=== PATIENT | female | born 1995 | race Caucasian/White ===

== ENCOUNTER → 2016-12-18 | Outpatient (CLI) | payer BC ==
[~2016-12-18] MED LIST: ETONMIS VAGRING; OXYC1TAB3 PO; PEDICHW53 PO
[2016-12-21 03:20] LABS: CHLAMYDIA TRACH RNA*** NOT DETECTED (NOT DETECTED); GC (NEIS GONORRHOEAE)RNA** NOT DETECTED (NOT DETECTED)
== END | disposition home or self-care (01) ==
LOC: C.LABSPEC 16:52
PROVIDERS: ATTEND Obstetrics & Gynecology
DX: Z11.3 Encounter for screening for infections with a predominantly sexual mode of transmission (principal)

== ENCOUNTER → 2016-12-18 | Outpatient (CLI) | payer BC | END | disposition home or self-care (01) | LOC: C.PAPS 10:17 | PROVIDERS: ATTEND Physician Assistant | DX: Z01.419 Encounter for gynecological examination (general) (routine) without abnormal findings (principal) ==

== ENCOUNTER 2017-07-04 15:27 | Emergency (ER) | payer BC ==
[~2017-07-04] VITALS: Ht 149.9 cm; Wt 66.5 kg
[2017-07-04 15:52] VITALS: TEMP 37.1; Ht 149.9 cm; Wt 66.5 kg
[2017-07-04] MEDS ORDERED: SODIUM CHLORIDE 0.9% 1000ML 1,000 ML IV STA (16:26)
[2017-07-04] MEDS ORDERED: SODIUM CHLORIDE 0.9% 1000ML 1,000 ML IV ONE (16:26)
[2017-07-04] MEDS ORDERED: KETOROLAC TROMETHAMINE 30 MG/ML VIAL IV STA (16:26)
--- NOTE | 2017-07-04 16:31 | EMERGENCY ROOM VISIT NOTE ---
History Report prepared by Sue: none Under the Supervision of: Dr. Madhu Li M.D. First contact with patient: 16:22 Chief Complaint: FLANK PAIN Stated Complaint: NAUSEA, LOWER BACK PAIN History of Present Illness The patient is a 21 year old female who presents to the Emergency Room with complaints of sudden onset of right flank pain. No history of similar. Denies dysuria or hematuria. She is currently having her normal menstrual period. There is no trauma. She's had no numbness weakness of her legs. No bowel or bladder problems. No chest pain or shortness of breath. She appears to be uncomfortable. This started this afternoon suddenly right after class. Source of History: patient Review of Systems As above. All other systems reviewed were negative unless otherwise stated in history. At least 10 were reviewed Past Medical & Surgical Old medical records were reviewed. Nurse's notes were reviewed and I agree with. Denies history of kidney stones Denies . She is on a NuvaRing Social History Smoking Status: Never Smoker Drug Use: none Marital Status: single Occupation Status: [employer] student Current/Historical Medications Scheduled Etonogestrel/Ethinyl Estradiol (Nuvaring), 1 EA VAGRING MONTHLY Pediatric Multiple Vitamin W/ (Flintstones Gummies), 2 TABS PO DAILY Scheduled PRN Oxycodone Immediate Rel Tab (Roxicodone Ir), 1-2 TAB PO Q4H PRN for Severe Pain Allergies Coded Allergies: No Known Allergies (Unverified , 07/04/17) Physical Exam Vital Signs Date Time Temp Pulse Resp B/P (MAP) Pulse Ox O2 Delivery O2 Flow Rate FiO2 07/04/17 17:19 72 110/80 100 Room Air 07/04/17 15:52 37.1 74 20 98 Room Air Physical Exam General: Well developed well nourished uncomfortable appearing young female complaining of right flank pain. In no acute distress, breathing comfortably on room air. Normal speech HEENT: Normal cephalic atraumatic. Pupils are equal round and reactive to light. Extraocular movements are intact. Oropharynx is pink with moist mucous membranes. No swelling of the mouth lips or tongue. Neck: Supple with a midline trachea. No meningeal signs or stiffness, no JVD or bruits. No Stridor. Chest: Clear to auscultation bilaterally. No wheezes or rhonchi. No increased work of breathing. Heart: Regular rate and rhythm without murmurs or gallops. Abdomen: Soft nontender, nondistended without rebound guarding or rigidity. Extremities: No cyanosis clubbing or edema. No calf tenderness or assymetry Spine/Back. She is mildly reproducible tender to palpation in the right flank.s Skin: Good turgor without rashes. Neurologic exam: Cranial nerves two through 12 are intact. Motor and sensation are intact and symmetrical throughout. Medical Decision & Procedures Laboratory Results 07/04/17 16:30 Red Blood Count 4.38, Mean Corpuscular Volume 82.9, Mean Corpuscular Hemoglobin 26.7, Mean Corpuscular Hemoglobin Concent 32.2, Mean Platelet Volume 9.9, Neutrophils (%) (Auto) 70.1, Lymphocytes (%) (Auto) 23.0, Monocytes (%) (Auto) 5.7, Eosinophils (%) (Auto) 0.7, Basophils (%) (Auto) 0.1, Neutrophils # (Auto) 10.16, Lymphocytes # (Auto) 3.34, Monocytes # (Auto) 0.83, Eosinophils # (Auto) 0.10, Basophils # (Auto) 0.02 07/04/17 16:30 Test 07/04/17 16:30 07/04/17 18:20 White Blood Count 14.51 K/uL (4.8-10.8) Red Blood Count 4.38 M/uL (4.2-5.4) Hemoglobin 11.7 g/dL (12.0-16.0) Hematocrit 36.3 % (37-47) Mean Corpuscular Volume 82.9 fL (80-100) Mean Corpuscular Hemoglobin 26.7 pg (25-34) Mean Corpuscular Hemoglobin Concent 32.2 g/dl (32-36) Platelet Count 387 K/uL (130-400) Mean Platelet Volume 9.9 fL (7.4-10.4) Neutrophils (%) (Auto) 70.1 % Lymphocytes (%) (Auto) 23.0 % Monocytes (%) (Auto) 5.7 % Eosinophils (%) (Auto) 0.7 % Basophils (%) (Auto) 0.1 % Neutrophils # (Auto) 10.16 K/uL (1.4-6.5) Lymphocytes # (Auto) 3.34 K/uL (1.2-3.4) Monocytes # (Auto) 0.83 K/uL (0.11-0.59) Eosinophils # (Auto) 0.10 K/uL (0-0.5) Basophils # (Auto) 0.02 K/uL (0-0.2) RDW Standard Deviation 41.5 fL (36.4-46.3) RDW Coefficient of Variation 13.6 % (11.5-14.5) Immature Granulocyte % (Auto) 0.4 % Immature Granulocyte # (Auto) 0.06 K/uL (0.00-0.02) Platelet Estimate NORMAL Anion Gap 11.0 mmol/L (3-11) Est Creatinine Clear Calc Drug Dose 75.3 ml/min Estimated GFR () 95.6 Estimated GFR (Non- 82.5 BUN/Creatinine Ratio 8.5 (10-20) Calcium Level 9.0 mg/dl (8.5-10.1) Total Bilirubin 0.2 mg/dl (0.2-1) Direct Bilirubin < 0.1 mg/dl (0-0.2) Aspartate Amino Transf (AST/SGOT) 17 U/L (15-37) Alanine Aminotransferase (ALT/SGPT) 18 U/L (12-78) Alkaline Phosphatase 40 U/L (45-117) Total Protein 8.0 gm/dl (6.4-8.2) Albumin 3.2 gm/dl (3.4-5.0) Lipase 76 U/L (73-393) Human Chorionic Gonadotropin, Qual NEG (NEG) Urine Color YELLOW Urine Appearance CLEAR (CLEAR) Urine pH 6.0 (4.5-7.5) Urine Specific [place] 1.021 (1.000-1.030) Urine Protein TRACE (NEG) Urine Glucose (UA) NEG (NEG) Urine Ketones 1+ (NEG) Urine Occult Blood 3+ (NEG) Urine Nitrite NEG (NEG) Urine Bilirubin NEG (NEG) Urine Urobilinogen NEG (NEG) Urine Leukocyte Esterase NEG (NEG) Medications Administered Medications (Trade) Dose Ordered Sig/Erik Route Start Time Stop Time Status Last Admin Dose Admin Sodium Chloride 1,000 ml @ 999 mls/hr Q1H1M STAT IV 07/04/17 16:26 07/04/17 17:26 DC 07/04/17 16:38 999 MLS/HR Sodium Chloride 1,000 ml @ 200 mls/hr Q5H ONCE IV 07/04/17 16:26 07/04/17 21:25 07/04/17 16:26 200 MLS/HR Ketorolac Tromethamine (Toradol Inj) 30 mg NOW STAT IV 07/04/17 16:26 07/04/17 16:28 DC 07/04/17 16:36 30 MG Morphine Sulfate (MoRPHine SULFATE INJ) 4 mg NOW STAT IV 07/04/17 17:43 07/04/17 17:48 DC 07/04/17 17:52 4 MG Ondansetron HCl (Zofran Inj) 4 mg NOW STAT IV 07/04/17 17:43 07/04/17 17:48 DC 07/04/17 17:52 4 MG Medical Decision Differential diagnosis includes: Kidney stone, kidney infection, musculoskeletal , , colitis, electrolyte or metabolic abnormality This patient comes in as described above. She was placed in room B6. She had sudden onset of flank pain. She appears very uncomfortable. IV access established was hydrated 1 L IV normal saline bolus and 200 mL an hour of IV normal saline. She was given Toradol 30 mg IV. Blood work was obtained as well as urinalysis and culture. She did receive some relief with this but started having more severe pain was given morphine 4 mg IV and Zofran 4 mg IV this seemed to help greatly. Upon reassessmen, t her pain was started to come back so she was given additional 4 mg of morphine. CAT scan shows obstructive kidney stone 4 mm distally on the right near the UVJ this will likely pass on its own. She was hydrated with IV normal saline here she has nothing to suggest infection. She is not . She has normal kidney function. She will be able to be discharged home s. He should strain her urine. Use ibuprofen for pain. For breakthrough pain, she can use OxyIR 5 mg 1-2 pills every 4-6 hours as needed. She was warned that it can make her drowsy and do not take before drinking, driving, working take with any other narcotic or pain medications. She should follow up with the [facility] for recheck next 1-2 days. [place] Drug Monitoring Program Search Results: patient reviewed within database, no issues identified Medication Reconcilliation Current Medication List: was personally reviewed by me Blood Pressure Screening Patient's blood pressure: Normal blood pressure Impression Primary Impression: Renal colic Additional Impressions: Right flank pain Kidney stone on right side Scribe Attestation none Departure Information Prescriptions Oxycodone Immediate Rel Tab (ROXICODONE IR) 5 Mg Tab 1-2 TAB PO Q4H Y for Severe Pain, #15 TAB Prov: Madhu Li M.D. 07/04/17 Referrals No Doctor, Assigned (PCP) Patient Instructions My [facility] Problem Qualifiers
[2017-07-04] MEDS ORDERED: PEDICHW53 PO (16:55)
[2017-07-04] MEDS ORDERED: ETONMIS VAGRING (16:55)
[2017-07-04 17:10] LABS: ALT/SGPT 18 U/L (12-78); BLOOD UREA NITROGEN 8 mg/dl (7-18); BUN/CREATININE RATIO 8.5 (10-20); CARBON DIOXIDE 22 mmol/L (21-32); CHLORIDE 108 mmol/L (98-107); CREATININE 0.98 mg/dl (0.60-1.20); GLUCOSE 112 mg/dl (70-99); POTASSIUM 3.3 mmol/L (3.5-5.1); SODIUM 141 mmol/L (136-145)
[2017-07-04 17:13] LABS: ALKALINE PHOSPHATASE 40 U/L (45-117); AST/SGOT 17 U/L (15-37)
[2017-07-04 17:15] LABS: PREG INTERNAL NEGATIVE QC NEG CLEAR BACKGROUND; PREG INTERNAL POSITIVE QC POS CONTROL LINE
[2017-07-04 17:18] LABS: HEMATOCRIT 36.3 % (37-47); MEAN CELL VOLUME 82.9 fL (80-100); MEAN CORPUSCULAR HEMOGLOBIN 26.7 pg (25-34); MEAN CORPUSCULAR HGB CONC 32.2 g/dl (32-36); MEAN PLATELET VOLUME 9.9 fL (7.4-10.4); PLATELET COUNT 387 K/uL (130-400); RED BLOOD COUNT 4.38 M/uL (4.2-5.4); WHITE BLOOD COUNT 14.51 K/uL (4.8-10.8)
[2017-07-04 17:19] LABS: BASO % 0.1 %; BASO ABS # 0.02 K/uL (0-0.2); COMPLETE YES; EOS % 0.7 %; IG% 0.4 %; LYMPH ABS # 3.34 K/uL (1.2-3.4); MONO % 5.7 %; NEUT % 70.1 %; PLT ESTIMATE NORMAL
--- NOTE | 2017-07-04 17:32 | DIAGNOSTIC IMAGING REPORT ---
CT SCAN OF THE ABDOMEN AND PELVIS WITHOUT IV CONTRAST CLINICAL HISTORY: Flank pain. COMPARISON STUDY: No priors. TECHNIQUE: CT scan of the abdomen and pelvis is performed from the lung bases to the proximal femora. Images are reviewed in the axial, sagittal, and coronal planes. IV contrast was not administered for this examination as per the front clinician. A dose lowering technique was utilized adhering to the principles of ALARA. CT DOSE: 731.48 mGy.cm FINDINGS: Lung bases: The heart is normal in size and without pericardial effusion. The lung bases are clear. Nipple piercings are noted. Liver: The unenhanced liver is normal in size, contour, and attenuation. There is no intrahepatic biliary ductal dilatation. Gallbladder: Unremarkable. Spleen: Normal in size and attenuation. Pancreas: Unremarkable. Adrenal glands: Unremarkable. Kidneys: The unenhanced kidneys are normal in size. There is a 4 mm obstructing calculus at the right vesicoureteral junction seen on axial image #356. This causes mild right hydroureteronephrosis. An additional punctate nonobstructing calculus is seen in the upper pole the left kidney. There is no left-sided hydronephrosis. There is no evidence of contour deforming renal mass lesion. Abdominal vasculature: The abdominal aorta is normal in course and caliber. Bowel: The small bowel and colon are normal in course and caliber. The appendix is not identified and reported surgically absent. Peritoneum: There is no intraperitoneal free air or abdominal ascites. There is a small fat-containing umbilical hernia. Lymphadenopathy: None. Pelvic viscera: The bladder, uterus, and adnexa are normal as visualized. Trace free fluid is seen in the cul-de-sac.. A tampon is in place. Skeletal structures: No lytic or blastic lesions are seen. IMPRESSION: 1. There is a 4 mm obstructing calculus at the right vesicoureteral junction. This causes mild right hydroureteronephrosis. 2. A punctate nonobstructing calculus is seen in the left kidney. 3. There is trace and likely physiologic free fluid in the cul-de-sac. Electronically signed by: Bar Lozano M.D. 07/04/2017 5:31 PM Dictated Date/Time: 07/04/2017 5:24 PM
[2017-07-04] MEDS ORDERED: MoRPHine SULFATE 4 MG/ML 1 ML CARP\\VIAL IV STA ×2 (17:43→18:27)
[2017-07-04] MEDS ORDERED: ONDANSETRON INJ 2 MG/ML 2 ML VIAL IV STA (17:43)
[2017-07-04] MEDS ORDERED: OXYC1TAB3 PO (18:34)
[2017-07-04 18:42] LABS: URINE APPEARANCE CLEAR (CLEAR); URINE BILIRUBIN NEG (NEG); URINE COLOR YELLOW; URINE EPITHELIAL CELL AUTO >30 /lpf (0-5); URINE NITRITE NEG (NEG); URINE SPECIFIC GRAVITY 1.021 (1.000-1.030); UROBILINOGEN NEG (NEG)
[2017-07-04] MEDS ORDERED: OXYCODONE IR HOME PACK PO ONE (18:45)
[2017-07-04 18:48] LABS: MANUAL MICROSCOPIC REQUIRED? NO; REVIEW REQ? YES
[2017-07-04 19:44] VITALS: BP 118/65; PULSE 93; O2SAT 97
[2017-07-04] MEDS ORDERED: ONDANSETRON HOME PACK 4MG OD TAB PO ONE (20:15)
[2017-07-04] MEDS ORDERED: ONDANSETRON HOME PACK 4MG OD TAB ONE (20:16)
== END 2017-07-04 19:46 | disposition home or self-care (01) ==
LOC: C.EDB 15:28
DX: N20.0 Calculus of kidney (principal); N23 Unspecified renal colic

== ENCOUNTER → 2017-07-10 | Outpatient (CLI) | payer BC | END | disposition home or self-care (01) | LOC: C.LABSPEC 17:17 | PROVIDERS: ATTEND Nurse Practitioner Adult Health | DX: N20.1 Calculus of ureter (principal) ==

== ENCOUNTER → 2017-07-16 | Outpatient (CLI) | payer BC | END | disposition home or self-care (01) | LOC: C.LABSPEC 17:39 | PROVIDERS: ATTEND Nurse Practitioner Adult Health | DX: N20.1 Calculus of ureter (principal) ==

== ENCOUNTER → 2017-07-16 | Outpatient (CLI) | payer BC ==
--- NOTE | 2017-07-16 13:31 | DIAGNOSTIC IMAGING REPORT ---
KUB CLINICAL HISTORY: Ureteral stone. COMPARISON STUDY: CT of the abdomen and pelvis July 04, 2017. FINDINGS: The bowel gas pattern is normal. The right ureteral calculus shown on CT of July 04, 2017 is not visualized. Pelvic calcifications likely reflect phleboliths. No urinary calculi are identified. IMPRESSION: Nonvisualization of the right ureteral calculus shown on prior CT suggesting interval passage. Electronically signed by: Wan Doyle M.D. 07/16/2017 1:30 PM Dictated Date/Time: 07/16/2017 1:28 PM
== END | disposition home or self-care (01) ==
LOC: C.RAD 12:58
PROVIDERS: ATTEND Nurse Practitioner Adult Health
DX: N20.1 Calculus of ureter (principal)

== ENCOUNTER → 2017-07-19 | Outpatient (CLI) | payer BC ==
--- NOTE | 2017-07-19 13:57 | DIAGNOSTIC IMAGING REPORT ---
SOFT TISS HEAD/NECK-THYROID CLINICAL HISTORY: 21 years-old Female with LT NECK MASS. Left-sided neck mass. COMPARISON: None available TECHNIQUE: Multiple real time sonographic images of the neck were obtained accessing smith scale appearance and color doppler flow. FINDINGS: Within the left aspect of the neck there is an ovoid circumscribed wider than tall hypoechoic structure measuring 2.9 x 1.1 x 2.3 cm with internal vascularity and mildly increased echogenicity centrally suggesting lymph node with fatty hilum. The patient is reportedly tender to palpation within this region. IMPRESSION: Mildly enlarged lymph node of the left neck measures up to 1.1 cm in short axis. This is likely reactive, however follow-up recommended to exclude progressive abnormality. The above report was generated using voice recognition software. It may contain grammatical, syntax or spelling errors. Electronically signed by: Phillip Lane M.D. 07/19/2017 1:56 PM Dictated Date/Time: 07/19/2017 1:44 PM
== END | disposition home or self-care (01) ==
LOC: C.ULTR 13:29
PROVIDERS: ATTEND Surgery
DX: R59.0 Localized enlarged lymph nodes (principal)

== ENCOUNTER → 2017-09-05 | Outpatient (CLI) | payer BC ==
--- NOTE | 2017-09-05 11:30 | DIAGNOSTIC IMAGING REPORT ---
SINUSES MIN 3 VIEWS ROUTINE CLINICAL HISTORY: Chronic cough. Allergic rhinitis. COMPARISON STUDY: No previous studies for comparison. FINDINGS: The paranasal sinuses are clear by radiography. No air-fluid levels or bony destruction are identified by radiography. Mastoid air cells are well aerated. IMPRESSION: No paranasal sinus opacification identified by radiography. Electronically signed by: Wan Doyle M.D. 09/05/2017 11:29 AM Dictated Date/Time: 09/05/2017 11:28 AM
== END | disposition home or self-care (01) ==
LOC: C.RAD1850 11:08
PROVIDERS: ATTEND Internal Medicine Pulmonary Disease
DX: J30.9 Allergic rhinitis, unspecified (principal); R05 Cough

== ENCOUNTER → 2017-09-14 | Outpatient (CLI) | payer BC ==
[~2017-09-14] MED LIST changes: +OPTIRAY 320 IV PRN
[2017-09-14 14:14] LABS: BASO % 0.1 %; BASO ABS # 0.01 K/uL (0-0.2); COMPLETE YES; EOS % 1.7 %; HEMATOCRIT 37.9 % (37-47); IG% 0.1 %; LYMPH ABS # 1.36 K/uL (1.2-3.4); MEAN CELL VOLUME 82.4 fL (80-100); MEAN CORPUSCULAR HEMOGLOBIN 26.7 pg (25-34); MEAN CORPUSCULAR HGB CONC 32.5 g/dl (32-36); MONO % 8.2 %; NEUT % 70.9 %; PLATELET COUNT 300 K/uL (130-400); WHITE BLOOD COUNT 7.16 K/uL (4.8-10.8)
[2017-09-14 14:24] LABS: PARTIAL THROMBOPLASTIN RATIO 1.1
[2017-09-14 14:38] LABS: BLOOD UREA NITROGEN 9 mg/dl (7-18); BUN/CREATININE RATIO 9.9 (10-20); CALCIUM 8.7 mg/dl (8.5-10.1); CARBON DIOXIDE 25 mmol/L (21-32); CHLORIDE 107 mmol/L (98-107); CREATININE 0.94 mg/dl (0.60-1.20); GLUCOSE 83 mg/dl (70-99); POTASSIUM 3.6 mmol/L (3.5-5.1); SODIUM 139 mmol/L (136-145)
[2017-09-14 14:42] LABS: ALB/GLOB RATIO 0.8 (0.9-2); ALKALINE PHOSPHATASE 42 U/L (45-117); ALT/SGPT 22 U/L (12-78); AST/SGOT 16 U/L (15-37)
[2017-09-14 15:07] LABS: IMMUNOGLOBULN M 59.4 mg/dL (40-230)
--- NOTE | 2017-09-14 15:08 | DIAGNOSTIC IMAGING REPORT ---
CT OF THE CHEST WITH IV CONTRAST CLINICAL HISTORY: Shortness of breath, chronic cough and enlarged lymph nodes in neck. COMPARISON STUDY: No previous studies for comparison. TECHNIQUE: Following IV administration of 93 mL of Optiray-320, helical axial images of the chest were obtained. Sagittal and coronal reconstructions were viewed as well as maximal intensity projections on an independent 3-D workstation. A dose lowering technique was utilized adhering to the principles of ALARA. CT DOSE: 168.20 mGycm FINDINGS: The size of the heart is normal. There is no pericardial effusion. No enlarged axillary, mediastinal or hilar lymph nodes are present. The central airways are patent. There is no consolidation to suggest pneumonia. There are no pulmonary nodules. Lung volumes are normal. No pneumothorax or pleural effusion is present. There is no honeycombing or bronchiectasis. Bony thorax and upper abdomen are unremarkable. IMPRESSION: Unremarkable chest CT. No consolidation to suggest pneumonia. No thoracic lymphadenopathy. Electronically signed by: Wan Doyel M.D. 09/14/2017 3:07 PM Dictated Date/Time: 09/14/2017 3:01 PM
== END | disposition home or self-care (01) ==
LOC: C.CTS 13:19
PROVIDERS: ATTEND Internal Medicine Pulmonary Disease
DX: R59.0 Localized enlarged lymph nodes (principal); R05 Cough; J30.9 Allergic rhinitis, unspecified

== ENCOUNTER 2017-10-05 06:26 | Day surgery (SDC) | payer BC ==
[2017-10-05] VITALS (7 sets, daily range): BP systolic 112–143; BP diastolic 65–88; PULSE 94–115; TEMP 37–37.8; O2SAT 94–100; Ht 149.9 cm; Wt 59.0 kg
[~2017-10-05] VITALS: Ht 149.9 cm; Wt 59.0 kg
[~2017-10-05 06:26] MED LIST changes: -OPTIRAY 320 IV PRN
--- NOTE | 2017-10-05 07:45 | History & Physical Bridge Note ---
H&P Re-Evaluation Bridge Note: I have examined the patient, reviewed the History & Physical and in the interval since the performance of the History & Physical I have noted the following changes of clinical significance: No changes noted
--- NOTE | 2017-10-05 07:46 | Pre Sedation Assessment ---
Pre Sedation Assessment General Date of Sedation: Oct 05, 2017. Pre-Sedation Airway Assessment Smoking Status: Never Smoker Mallampati Classification: Class II ASA Classification: Class I Procedure Planning Contraindications for Sedation: None Current Medications Reviewed: Yes Notes The planned sedation has been discussed with the patient. Informed Consent was obtained. I have identified the patient, determined the appropriateness of sedation and have assessed the patient immediately prior to the procedure. All medicine(s) and interventions are by my order.
[2017-10-05] MEDS ORDERED: LAMO100T16 PO (08:00)
[2017-10-05] MEDS ORDERED: BUPRTAB51 PO (08:00)
[2017-10-05] MEDS ORDERED: TRAZ100T29 PO (08:00)
[2017-10-05] MEDS ORDERED: NURSING VERBAL MED ORDER ONE (09:15)
[2017-10-05] MEDS ORDERED: DEXTROSE 5% 1000ML 1,000 ML IV SCH (09:30)
[2017-10-05] MEDS ORDERED: FENTANYL CITRATE INJ 50 MCG/1 ML 2 ML VIAL IV ONE (10:21)
[2017-10-05] MEDS ORDERED: LEVALBUTEROL 1.25MG/0.5ML NEB INH ONE (10:21)
[2017-10-05] MEDS ORDERED: LIDOCAINE HCL 2% LOCAL 50ML VIAL INSTIL ONE (10:21)
[2017-10-05] MEDS ORDERED: MIDAZOLAM HCL 5 MG/ML 1 ML VIAL IV ONE (10:21)
[2017-10-05] MEDS ORDERED: LIDOCAINE 4% INH SOLN 4 ML BTL TOP ONE (10:21)
[2017-10-05] MEDS ORDERED: LIDOCAINE VISCOUS 2% 100ML TOP ONE (10:21)
--- NOTE | 2017-10-05 10:26 | Discharge Instructions ---
Discharge Instructions Date of Service Oct 05, 2017. Admission Reason for Admission: COUGH Discharge Discharge Diagnosis / Problem: Chronic tracheobronchitis Discharge Goals Goal(s): Diagnostic testing Activity Recommendations Activity Limitations: resume your previous activity Lifting Limitations: none Exercise/Sports Limitations: none May Resume Sexual Activity: when tolerated Shower/Bathe: no limitations Driving or Machine Use: resume 1 day after discharge none . Instructions / Follow-Up Instructions / Follow-Up ACTIVITY RECOMMENDATIONS: * Rest today, resume normal activity tomorrow. * Do not drive today. SPECIAL CARE INSTRUCTIONS: * Call your physician if you experience any chest or shoulder pain, fever, coughing, spitting up blood (more than 2 teaspoons) or excessive shortness of breath. * Remove dressing from IV site (where needle was placed into the vein) after 2 hours. Apply a warm, moist compress to site if irritation occurs. Call physician if site becomes red or painful to touch. FOLLOW UP VISIT: * Keep any scheduled doctor appointments. Current Hospital Diet Patient's current hospital diet: regular Discharge Diet Recommended Diet: Regular Diet Fluid Restriction: None Procedures Procedures Performed: BRONCHOSCOPY Pending Studies Studies pending at discharge: no Medical Emergencies . Who to Call and When: Medical Emergencies: If at any time you feel your situation is an emergency, please call 911 immediately. . Non-Emergent Contact Non-Emergency issues call your: Director Of Informatics Call Non-Emergent contact if: temperature is above 101 . . "Provider Documentation" section prepared by Isaias Chaudhari. . VTE Core Measure Inpt VTE Proph given/why not?: Treatment not indicated
--- NOTE | 2017-10-05 12:04 | OPERATIVE REPORT ---
DATE OF OPERATION: 10/05/2017 PROCEDURE: Fiberoptic bronchoscopy with bronchoalveolar lavage with or without biopsy. INDICATIONS: Chronic cough refractory to aggressive outpatient therapy. ANESTHESIA PREOPERATIVELY: None. ANESTHESIA DURING PROCEDURE: A 100 mcg IV fentanyl, 7 mg IV Versed, 20 mL 2% Xylocaine spray above and below the cords, 4% viscous Xylocaine intranasally. DESCRIPTION OF PROCEDURE: Thank Fiberoptic bronchoscope was inserted into the left naris with minimal difficulty and passed to the level of the true vocal cords. Cords appeared to approximate normally with phonation without evidence of lesions or paralysis. The scope was then introduced in the trachea and right and left tracheobronchial tree. Immediately apparent was that there were several areas of abnormality seen initially. Initially at fourth to fifth intratracheal cartilaginous rings, posteriorly there was a whitish plaque or membrane adherent to the posterior wall. This similar findings was seen in several areas less prominently displayed throughout the trachea. The scope was then passed to the level of the arpita which was sharp in the right and left tracheobronchial tree. The right main stem bronchus was found to be free of endobronchial lesions. Right upper lobe, the apical posterior, anterior and axillary segments were visualized with no endobronchial lesions seen. Bronchus intermedius, right middle lobe, medial lateral segments and all basilar segments right lower lobe were then found to be free of endobronchial lesions. Left tracheobronchial tree was explored and no endobronchial lesion was seen. Left upper lobe, lingular, the apical posterior and anterior segments, lingular subdivision and left lower lobe were all found to be free of endobronchial lesions with some mild mucous pitting seen throughout the left tracheobronchial tree. The right lower lobe and left lower lobe were copiously lavaged with normosol as well as the boss of the trachea and the aspirate sent for appropriate studies. Brushings were taken from the most prominently displayed area of whitish plaque involving the posterior tracheal wall x3 with minimal bleeding encountered. One biopsy was attempted with only a small piece of tissue obtained. Technically, it was difficult to biopsy this area given its location. The procedure was terminated. The patient was given a nebulizer treatment with Xopenex 1.25 mg and transferred to the medical treatment unit hemodynamically stable with no signs of respiratory compromise. Will await microbiological, cytological and histopathologic diagnoses in addition to routine cultures for C&S, AFB and fungal from the tracheobronchial washings, CMV and herpes simplex cultures were sent for as well as PCR for both Bordetella pertussis, herpes simplex and CMV from the bronchial washings were ordered. I attest to the content of the Intraoperative Record and any orders documented therein. Any exception s are noted below.
== END 2017-10-05 12:25 | disposition home or self-care (01) ==
LOC: C.ACU 06:26
PROVIDERS: ATTEND Internal Medicine Pulmonary Disease
DX: R05 Cough (principal); J30.9 Allergic rhinitis, unspecified; F41.8 Other specified anxiety disorders; R59.0 Localized enlarged lymph nodes; N20.1 Calculus of ureter; Z90.89 Acquired absence of other organs; Z82.49 Family history of ischemic heart disease and other diseases of the circulatory system; Z84.1 Family history of disorders of kidney and ureter; Z80.3 Family history of malignant neoplasm of breast; Z84.2 Family history of other diseases of the genitourinary system; Z81.8 Family history of other mental and behavioral disorders

== ENCOUNTER 2018-01-25 14:13 | Inpatient (IN) | payer BC ==
[~2018-01-25] VITALS: Ht 149.9 cm; Wt 61.7 kg
[~2018-01-25 14:13] MED LIST changes: +BUPRTAB51 PO; +LAMO100T16 PO; -OXYC1TAB3 PO; -PEDICHW53 PO; +TRAZ100T29 PO
[2018-01-25] MEDS ORDERED: SODIUM CHLORIDE 0.9% 1000ML 1,000 ML IV STA (14:28)
--- NOTE | 2018-01-25 14:56 | DIAGNOSTIC IMAGING REPORT ---
CHEST ONE VIEW PORTABLE HISTORY: Overdose COMPARISON: Chest CT 09/14/2017. FINDINGS: The lungs are clear. The heart is normal in size. No pleural effusions. No pneumothorax. Old, healed left seventh rib fracture. IMPRESSION: No acute process. Electronically signed by: Giorgi Lopez M.D. 01/25/2018 2:54 PM Dictated Date/Time: 01/25/2018 2:53 PM
[2018-01-25 15:01] LABS: BASO % 0.1 %; BASO ABS # 0.01 K/uL (0-0.2); EOS % 0.2 %; EOS ABS # 0.02 K/uL (0-0.5); HEMATOCRIT 37.7 % (37-47); HEMOGLOBIN 12.4 g/dL (12.0-16.0); IG# 0.03 K/uL (0.00-0.02); LYMPH % 11.1 %; LYMPH ABS # 1.18 K/uL (1.2-3.4); MEAN CELL VOLUME 82.9 fL (80-100); MEAN CORPUSCULAR HEMOGLOBIN 27.3 pg (25-34); MEAN CORPUSCULAR HGB CONC 32.9 g/dl (32-36); MEAN PLATELET VOLUME 9.4 fL (7.4-10.4); MONO % 3.7 %; MONO ABS # 0.39 K/uL (0.11-0.59); NEUT % 84.6 %; NEUT ABS # 9.03 K/uL (1.4-6.5); PLATELET COUNT 300 K/uL (130-400); RED CELL DISTRIBUTION WIDTH CV 13.2 % (11.5-14.5); RED CELL DISTRIBUTION WIDTH SD 39.6 fL (36.4-46.3); WHITE BLOOD COUNT 10.66 K/uL (4.8-10.8)
[2018-01-25 15:15] LABS: PTT PATIENT 23.2 SECONDS (21.0-31.0)
[2018-01-25 15:23] LABS: ALBUMIN 3.6 gm/dl (3.4-5.0); ALT/SGPT 14 U/L (12-78); AST/SGOT 13 U/L (15-37); BLOOD UREA NITROGEN 11 mg/dl (7-18); CALCIUM 8.5 mg/dl (8.5-10.1); CARBON DIOXIDE 24 mmol/L (21-32); CREATININE 0.99 mg/dl (0.60-1.20); GLUCOSE 110 mg/dl (70-99); LIPASE 63 U/L (73-393); POTASSIUM 3.7 mmol/L (3.5-5.1); SODIUM 138 mmol/L (136-145)
[2018-01-25 15:28] LABS: ALKALINE PHOSPHATASE 33 U/L (45-117); CKMB < 0.5 ng/ml (0.5-3.6); TOTAL PROTEIN 7.3 gm/dl (6.4-8.2)
--- NOTE | 2018-01-25 18:06 | EMERGENCY ROOM VISIT NOTE ---
History Report prepared by Averyibrd: Liborio Allen Under the Supervision of: Dr. Isaias Douglas D.O. First contact with patient: 14:11 Chief Complaint: OVERDOSE (INTENTIONAL) Stated Complaint: OVERDOSE History of Present Illness The patient is a 22 year old female who presents to the Emergency Room by EMS for evaluation of an intentional drug overdose occurring 1.5 hours ago. The patient admits to taking around 40 Trazodone tablets. She states that she took the pills in order to hurt herself. She has attempted suicide by overdose before in the past. The patient currently complains of nausea. She states that she texted her ex-boyfriend today before taking the pills. She states that she took the pills because she feels depressed. The patient states that she has been struggling with recurrent pneumonia. She denies recent medication changes and states that she has been taking her medications as prescribed. She denies any recent drug or alcohol use. EMS notes that the patient vomited twice en route, and twice prior to their arrival. They did not see any pill fragments in her vomit. They note that there are 44 pills missing from the bottle, but she had the prescription filled on December 27 (about a month ago). The patient denies abdominal pain. Her LNMP was one week ago. Source of History: patient Onset: Just prior to arrival Quality: other (drug overdose) Timing: other (episode) Associated Symptoms: + nausea, + vomiting, No abdominal pain Review of Systems See HPI for pertinent positives & negatives. A total of 10 systems reviewed and were otherwise negative. Past Medical & Surgical Medical Problems: (1) Allergic rhinitis (2) Chronic asthmatic bronchitis (3) Depression (4) GARFIELD (generalized anxiety disorder) Family History No pertinent family history stated. Social History Smoking Status: Never Smoker Drug Use: none Marital Status: single Occupation Status: [employer] student Current/Historical Medications Scheduled Bupropion (Wellbutrin-Xl), 300 MG PO QPM Etonogestrel/Ethinyl Estradiol (Nuvaring), 1 EA VAGRING MONTHLY Lamotrigine (Lamictal), 100 MG PO QPM Trazodone Hcl (Trazodone), 100 MG PO QPM Allergies Coded Allergies: No Known Allergies (Unverified , 10/05/17) Physical Exam Vital Signs Date Time Temp Pulse Resp B/P (MAP) Pulse Ox O2 Delivery O2 Flow Rate FiO2 4/27/18 16:49 73 16 103/57 97 01/25/18 15:31 88 16 104/60 98 Room Air 01/25/18 15:23 88 01/25/18 14:56 99 Room Air 01/25/18 14:56 82 17 106/63 98 Room Air 01/25/18 14:16 36.8 108 17 105/63 90 Room Air Physical Exam GENERAL: Patient is listless and non-anxious. Slow to answer questions but answers appropriately. EYES: The conjunctivae are clear. The pupils are round and reactive. EARS, NOSE, MOUTH AND THROAT: The nose is without any evidence of any deformity. Mucous membranes are moist tongue is midline NECK: The neck is nontender and supple. RESPIRATORY: Normal respiratory effort is noted there is no evidence of wheezing rhonchi or rales CARDIOVASCULAR: Regular rate and rhythm noted there no murmurs rubs or gallops normal S1 normal S2 GASTROINTESTINAL: The abdomen is soft. Bowel sounds are present in all quadrants. Abdomen is nontender MUSCULOSKELETAL/EXTREMITIES: There is no evidence of gross deformity full range of motion is noted in the hips and shoulders SKIN: There is no obvious evidence of any rash. There are no petechiae, pallor or cyanosis noted. NEUROLOGIC: Patient is awake alert and oriented x3. Patellar tendon reflexes 2 + bilaterally. PSYCH: Flat affect. Continues to admit to suicidal ideation, and admits that she took her medication in an attempt to hurt herself. Medical Decision & Procedures ER Provider Diagnostic Interpretation: Radiology results as stated below per my review and radiologist interpretation: CHEST ONE VIEW PORTABLE FINDINGS: The lungs are clear. The heart is normal in size. No pleural effusions. No pneumothorax. Old, healed left seventh rib fracture. IMPRESSION: No acute process. Electronically signed by: Giorgi Lopez M.D. 01/25/2018 2:54 PM Laboratory Results 01/25/18 14:42 Red Blood Count 4.55, Mean Corpuscular Volume 82.9, Mean Corpuscular Hemoglobin 27.3, Mean Corpuscular Hemoglobin Concent 32.9, Mean Platelet Volume 9.4, Neutrophils (%) (Auto) 84.6, Lymphocytes (%) (Auto) 11.1, Monocytes (%) (Auto) 3.7, Eosinophils (%) (Auto) 0.2, Basophils (%) (Auto) 0.1, Neutrophils # (Auto) 9.03, Lymphocytes # (Auto) 1.18, Monocytes # (Auto) 0.39, Eosinophils # (Auto) 0.02, Basophils # (Auto) 0.01 01/25/18 14:42 Test 01/25/18 14:42 01/25/18 17:40 01/25/18 18:31 White Blood Count 10.66 K/uL (4.8-10.8) Red Blood Count 4.55 M/uL (4.2-5.4) Hemoglobin 12.4 g/dL (12.0-16.0) Hematocrit 37.7 % (37-47) Mean Corpuscular Volume 82.9 fL (80-100) Mean Corpuscular Hemoglobin 27.3 pg (25-34) Mean Corpuscular Hemoglobin Concent 32.9 g/dl (32-36) Platelet Count 300 K/uL (130-400) Mean Platelet Volume 9.4 fL (7.4-10.4) Neutrophils (%) (Auto) 84.6 % Lymphocytes (%) (Auto) 11.1 % Monocytes (%) (Auto) 3.7 % Eosinophils (%) (Auto) 0.2 % Basophils (%) (Auto) 0.1 % Neutrophils # (Auto) 9.03 K/uL (1.4-6.5) Lymphocytes # (Auto) 1.18 K/uL (1.2-3.4) Monocytes # (Auto) 0.39 K/uL (0.11-0.59) Eosinophils # (Auto) 0.02 K/uL (0-0.5) Basophils # (Auto) 0.01 K/uL (0-0.2) RDW Standard Deviation 39.6 fL (36.4-46.3) RDW Coefficient of Variation 13.2 % (11.5-14.5) Immature Granulocyte % (Auto) 0.3 % Immature Granulocyte # (Auto) 0.03 K/uL (0.00-0.02) Prothrombin Time 10.5 SECONDS (9.0-12.0) Prothromb Time International Ratio 1.0 (0.9-1.1) Activated Partial Thromboplast Time 23.2 SECONDS (21.0-31.0) Partial Thromboplastin Ratio 0.9 Anion Gap 9.0 mmol/L (3-11) Est Creatinine Clear Calc Drug Dose 87.9 ml/min Estimated GFR () 93.7 Estimated GFR (Non- 80.9 BUN/Creatinine Ratio 11.1 (10-20) Calcium Level 8.5 mg/dl (8.5-10.1) Total Bilirubin 0.3 mg/dl (0.2-1) Direct Bilirubin < 0.1 mg/dl (0-0.2) Aspartate Amino Transf (AST/SGOT) 13 U/L (15-37) Alanine Aminotransferase (ALT/SGPT) 14 U/L (12-78) Alkaline Phosphatase 33 U/L (45-117) Total Creatine Kinase 74 U/L (26-192) Creatine Kinase MB < 0.5 ng/ml (0.5-3.6) Creatine Kinase MB Ratio (0-3.0) Troponin I < 0.015 ng/ml (0-0.045) Total Protein 7.3 gm/dl (6.4-8.2) Albumin 3.6 gm/dl (3.4-5.0) Lipase 63 U/L (73-393) Human Chorionic Gonadotropin, Qual NEG (NEG) Salicylates Level < 1.7 mg/dl (2.8-20) Acetaminophen Level < 2 ug/ml (10-30) Ethyl Alcohol mg/dL < 3.0 mg/dl (0-3) Urine Color YELLOW Urine Appearance CLEAR (CLEAR) Urine pH 6.0 (4.5-7.5) Urine Specific [place] 1.013 (1.000-1.030) Urine Protein NEG (NEG) Urine Glucose (UA) NEG (NEG) Urine Ketones 1+ (NEG) Urine Occult Blood NEG (NEG) Urine Nitrite NEG (NEG) Urine Bilirubin NEG (NEG) Urine Urobilinogen NEG (NEG) Urine Leukocyte Esterase NEG (NEG) Urine Opiates Screen NEG (NEG) Urine Methadone, Qualitative NEG (NEG) Urine Barbiturates NEG (NEG) Urine Phencyclidine (PCP) Level NEG (NEG) Ur Amphetamine/Methamphetamine NEG (NEG) MDMA (Ecstasy) Screen POS (NEG) Urine Benzodiazepines Screen NEG (NEG) Urine Cocaine Metabolite NEG (NEG) Urine Marijuana (THC) NEG (NEG) Laboratory results per my review. Medications Administered Medications (Trade) Dose Ordered Sig/Erik Route Start Time Stop Time Status Last Admin Dose Admin Sodium Chloride 1,000 ml @ 999 mls/hr Q1H1M STAT IV 01/25/18 14:28 01/25/18 15:28 DC 01/25/18 14:54 999 MLS/HR ECG Per My Interpretation Indication: toxicologic Rate (beats per minute): 86 Rhythm: normal sinus Findings: no ectopy, other (No acute ST segments. ) Comparison ECG Date: no prior available ED Course 1413: The patient was evaluated in room B10. A complete history and physical examination were performed. 1428: Ordered NSS 1,000 ml @ 999 mls/hr IV. 1738: Upon reevaluation, the patient is resting. I discussed results and treatment plan with her. She verbalizes agreement and understanding. I spoke with Dr. Vail of the [facility] Hospitalist Service. The patient will be evaluated for further management and care. Medical Decision Differential diagnosis: Etiologies such as toxicologic, infection, hypoglycemia, electrolyte abnormalities, cardiac sources, intracerebral event, neurologic, as well as others were entertained. Nursing notes reviewed. Additional history is obtained from the prehospital personnel. Additional history is obtained from the police. The patient is a 22-year-old female who presented to the emergency department after a suicidal gesture. The patient took a large amount of her trazodone in an attempt to hurt herself. The patient was somewhat tired but she was not lethargic. Her vital signs were reviewed multiple times. She was treated with IV fluids. I discussed patient's laboratory and radiographic studies with her. We discussed this case with the Poison Control Center. Given the patient's large amount of trazodone overdose she was felt to be at particular risk for delayed symptomatology. For this reason poison control thought we should observe the patient. I discussed this case with the on-call [facility] hospitalist. They have agreed to evaluate the patient in the emergency department for further management and disposition. The patient was evaluated by the mental health field nurse case manager. Medication Reconcilliation Current Medication List: was personally reviewed by me Blood Pressure Screening Patient's blood pressure: Normal blood pressure Blood pressure disposition: Did not require urgent referral Consults Time Called: 1738 Consulting Physician: Dr. Vail - [facility] [place] [place] Hospitalist Returned Call: 1750 I discussed the patient's case with Dr. Vail. The patient will be evaluated for further management. Impression Primary Impression: Overdose Additional Impressions: Suicide gesture Suicidal ideation Depression Scribe Attestation The scribe's documentation has been prepared under my direction and personally reviewed by me in its entirety. I confirm that the note above accurately reflects all work, treatment, procedures, and medical decision making performed by me. Departure Information Dispostion Being Evaluated By Hospitalist Referrals No Doctor, Assigned (PCP) Patient Instructions My [facility] Problem Qualifiers Primary Impression: Overdose Encounter type: initial encounter Injury intent: intentional self-harm Qualified Codes: T50.902A - Poisoning by unspecified drugs, medicaments and biological substances, intentional self-harm, initial encounter Additional Impressions: Suicide gesture Encounter type: initial encounter Qualified Codes: X83.8XXA - Intentional self-harm by other specified means, initial encounter Depression Depression Type: unspecified Qualified Codes: F32.9 - Major depressive disorder, single episode, unspecified
--- NOTE | 2018-01-25 18:13 | History and Physical ---
History & Physical Date & Time of Service: Jan 25, 2018 at 18:03 Chief Complaint: Overdose Primary Care Physician: No Doctor, Assigned History of Present Illness Source: patient This is a 22 yo F with PMHx of MDD, GARFIELD, allergic rhinitis, chronic asthmatic bronchitis, who presents to the ER after suicidal attempt via overdose with Trazodone 100 mg tablets, and taking a maximum of 47 tablets. She ingested this around 1 pm after sending a text message to her boyfriend around 12:30 telling him that she was going to end it all. She currently notes fatigue, nausea and has vomited several times since being in the ER. She denies abdominal pain. The patient reports significant social stressors recently. Pt states "[facility]. She is currently dating a man who is to another woman, and in the past 2 days decided he wanted to live with the patient. The patient and boyfriend had been looking for apartments together and planned on moving in together later this summer. She was informed today by the boyfriend that he wouldn't be able to move in/stay with her. She notes he has chronic health issues including cystic fibrosis/double lung transplant hx and the feels she is always caring for him, therefore resents him. Pt also notes she dropped out of college last August. She was attending [employer] for engineering degree. She recently has been laid off from working at [employer] and is not seeking employment due to her health issues with recurrent pneumonia and always feeling short of breath. She does follow with Dr. Chaudhari for chronic bronchitis as an outpatient, but has not been using inhalers at all because "they dont work". She denies any hx of smoking. She carmen by talking to one of her current roommates, and one older brother as her support system. While she was attending college she utilized the campus counselor services however is no longer eligible due to not being enrolled. Other coping mechanisms include drinking 2-3 cups of liquor (vodka and peach schnaps mixed with soda) about 4x per week. Pt denies any drug use. Pt follows with psychiatry with Dr. Bhat from [facility] who prescribes her lamictal, wellbutrin and trazodone. Her care was initiated with Dr. Bhat last August. At this point, she is unsure her current medications are helping her. She did see improvement in her mood when first starting them last year however. Past Medical/Surgical History Medical Problems: (1) Allergic rhinitis (2) Chronic asthmatic bronchitis (3) Depression (4) GARFIELD (generalized anxiety disorder) Family History FH: CHF (congestive heart failure) MOTHER FH: HTN (hypertension) FATHER FH: breast cancer FH: depression FATHER FH: ovarian cancer Kidney stones FATHER Social History Smoking Status: Never Smoker Smokeless Tobacco Use: No Alcohol Use: heavy Drug Use: none Marital Status: single Housing status: lives with roommate Occupational Status: unemployed, [employer] student Allergies Coded Allergies: No Known Allergies (Unverified , 10/05/17) Home Medications Scheduled Bupropion (Wellbutrin-Xl), 300 MG PO QPM Etonogestrel/Ethinyl Estradiol (Nuvaring), 1 EA VAGRING MONTHLY Lamotrigine (Lamictal), 100 MG PO QPM Trazodone Hcl (Trazodone), 100 MG PO QPM Review of Systems Constitutional: No fever, sweats or chills Eyes: No diplopia, no worsening or blurred vision ENT: normal hearing, no trouble swallowing Respiratory: No cough, sputum, + dyspnea with exertion Cardiovascular: No chest pain, tightness or palpitations Abdomen: No pain, + nausea and vomiting, no diarrhea or constipation Musculoskeletal: No joint pain, calf pain, swelling Neurologic: No weakness, numbness/tingling, or balance problems Psychiatric:+ anxiety, depression mood swings, insomnia, nightmares., Skin: No rash or itch Physical Exam Vital Signs Date Time Temp Pulse Resp B/P (MAP) Pulse Ox O2 Delivery O2 Flow Rate FiO2 01/25/18 16:49 73 16 103/57 97 01/25/18 15:31 88 16 104/60 98 Room Air 01/25/18 15:23 88 01/25/18 14:56 99 Room Air 01/25/18 14:56 82 17 106/63 98 Room Air 01/25/18 14:16 36.8 108 17 105/63 90 Room Air Depressed affect general: awake, alert, fatigued, + pallor, eyes sunken in Head: Normocephalic, atraumatic ENT: PERRL, EOMI, no pharyngeal exudate, mucous membranes slightly dry Chest: Clear to auscultation, on room air, no adventitious breath sounds Cardiac: Tachycardic with heart rate around 110s, no murmur, no JVD, normal peripheral pulses, good capillary refill Abdominal: NABS x 4 quadrants, soft, nontender to palpation, no rebound, guarding or tenderness Extremities: Normal inspection, no peripheral edema or erythema, calfs nontender to palpation Psych: Depressed affect, appears as though she has been crying Neuro: AAO x 3, strength intact bilaterally and related 5/5, no motor deficits, speech is clear, no peripheral sensory deficits Diagnostics Laboratory Results Results Past 24 Hours Test 01/25/18 14:42 01/25/18 17:40 Range/Units White Blood Count 10.66 4.8-10.8 K/uL Red Blood Count 4.55 4.2-5.4 M/uL Hemoglobin 12.4 12.0-16.0 g/dL Hematocrit 37.7 37-47 % Mean Corpuscular Volume 82.9 80-100 fL Mean Corpuscular Hemoglobin 27.3 25-34 pg Mean Corpuscular Hemoglobin Concent 32.9 32-36 g/dl Platelet Count 300 130-400 K/uL Mean Platelet Volume 9.4 7.4-10.4 fL Neutrophils (%) (Auto) 84.6 % Lymphocytes (%) (Auto) 11.1 % Monocytes (%) (Auto) 3.7 % Eosinophils (%) (Auto) 0.2 % Basophils (%) (Auto) 0.1 % Neutrophils # (Auto) 9.03 1.4-6.5 K/uL Lymphocytes # (Auto) 1.18 1.2-3.4 K/uL Monocytes # (Auto) 0.39 0.11-0.59 K/uL Eosinophils # (Auto) 0.02 0-0.5 K/uL Basophils # (Auto) 0.01 0-0.2 K/uL RDW Standard Deviation 39.6 36.4-46.3 fL RDW Coefficient of Variation 13.2 11.5-14.5 % Immature Granulocyte % (Auto) 0.3 % Immature Granulocyte # (Auto) 0.03 0.00-0.02 K/uL Prothrombin Time 10.5 9.0-12.0 SECONDS Prothromb Time International Ratio 1.0 0.9-1.1 Activated Partial Thromboplast Time 23.2 21.0-31.0 SECONDS Partial Thromboplastin Ratio 0.9 Sodium Level 138 136-145 mmol/L Potassium Level 3.7 3.5-5.1 mmol/L Chloride Level 105 98-107 mmol/L Carbon Dioxide Level 24 21-32 mmol/L Anion Gap 9.0 3-11 mmol/L Blood Urea Nitrogen 11 7-18 mg/dl Creatinine 0.99 0.60-1.20 mg/dl Est Creatinine Clear Calc Drug Dose 87.9 ml/min Estimated GFR () 93.7 Estimated GFR (Non- 80.9 BUN/Creatinine Ratio 11.1 10-20 Random Glucose 110 70-99 mg/dl Calcium Level 8.5 8.5-10.1 mg/dl Total Bilirubin 0.3 0.2-1 mg/dl Direct Bilirubin < 0.1 0-0.2 mg/dl Aspartate Amino Transf (AST/SGOT) 13 15-37 U/L Alanine Aminotransferase (ALT/SGPT) 14 12-78 U/L Alkaline Phosphatase 33 45-117 U/L Total Creatine Kinase 74 26-192 U/L Creatine Kinase MB < 0.5 0.5-3.6 ng/ml Creatine Kinase MB Ratio 0-3.0 Troponin I < 0.015 0-0.045 ng/ml Total Protein 7.3 6.4-8.2 gm/dl Albumin 3.6 3.4-5.0 gm/dl Lipase 63 73-393 U/L Human Chorionic Gonadotropin, Qual NEG NEG Salicylates Level < 1.7 2.8-20 mg/dl Acetaminophen Level < 2 10-30 ug/ml Ethyl Alcohol mg/dL < 3.0 0-3 mg/dl Urine Color YELLOW Urine Appearance CLEAR CLEAR Urine pH 6.0 4.5-7.5 Urine Specific [place] 1.013 1.000-1.030 Urine Protein NEG NEG Urine Glucose (UA) NEG NEG Urine Ketones 1+ NEG Urine Occult Blood NEG NEG Urine Nitrite NEG NEG Urine Bilirubin NEG NEG Urine Urobilinogen NEG NEG Urine Leukocyte Esterase NEG NEG Diagnostic Radiology CHEST ONE VIEW PORTABLE HISTORY: Overdose COMPARISON: Chest CT 09/14/2017. FINDINGS: The lungs are clear. The heart is normal in size. No pleural effusions. No pneumothorax. Old, healed left seventh rib fracture. IMPRESSION: No acute process. Electronically signed by: Giorgi Lopez M.D. 01/25/2018 2:54 PM Dictated Date/Time: 01/25/2018 2:53 PM The status of this report is Signed. EKG Normal sinus rhythm Low voltage QRS Nonspecific ST abnormality Borderline ECG No previous ECGs available Vent. rate 86 BPM NE interval 144 ms QRS duration 78 ms QT/QTc 396/473 ms P-R-T axes 81 73 41 Impression Assessment and Plan This is a 22 yo F with PMHx of MDD, GARFIELD, allergic rhinitis, chronic asthmatic bronchitis, who presents to the ER after suicidal attempt via overdose with Trazodone 100 mg tablets, and taking a maximum of 47 tablets. She ingested this around 1 pm after sending a text message to her boyfriend around 12:30 telling him that she was going to end it all. She currently notes fatigue, nausea and has vomited several times since being in the ER. Suicidal overdose Major depressive disorder, severe recurrent GARFIELD Bipolar disorder -Admit to telemetry for cardiac monitoring overnight, likely can go to psychiatry if no events overnight on telemetry -Consult psychiatry -302 completed in the ER -Continue on current doses of Lamictal and Wellbutrin -We will hold trazodone 100 mg tabs -patient ingested maximum of 47 tablets no gastric lavage was performed in the ER. Patient has vomited numerous times. - -Continue IVF's and Zofran prn -Suicidal precautions, one-to-one bedside sitter -Tox screen + mdms- however this is a byproduct and due to patient being on Wellbutrin. -Checking Lamictal level -VSS Chronic asthmatic bronchitis -Follows with Dr. Chaudhari as an outpatient - Per last outpatient note was supposed to be on pro-air inhaler however patient reports that she is not using this. -Please check to make sure patient has prescription available to her prior to discharge -duo nebs qid and q2h prn DVT ppx: Teds, SCDs, ambulatory with assistance CODE STATUS full code Disposition: Patient from home, lives with roommates, will likely be discharged to psychiatry within the next 24 hours. I personally interviewed and examined the patient. I agree with history of present illness and physical exam mentioned above, I also performed my own history taking and examination. Past medical history and review of system has been obtained by myself I reviewed all pertinent labs and studies Reviewed current medications I discussed and formulated of the assessment and plan mentioned above. Please refer to the Summary mentioned below. 22-year-old female with past medical history of generalized anxiety disorder, asthma and depression. Patient had multiple social problems and decided to end her life, she swallowed about 30-40 tablets of trazodone 100 mg, she texted her boyfriend before she does not, who called the police and she was brought to the ED. Poison control recommended monitoring her overnight. Currently slightly other lethargic but the rest of physical exam is completely normal. General Appearance: not in acute distress Eyes: normal Sclerae, extraocular muscle intact ENT: hearing grossly normal Neck: supple Respiratory/Chest: normal air entry bilateral ,no respiratory distress, no accessory muscle use Cardiovascular: regular rate, rhythm, no murmur Abdomen: non tender, soft, no masses Extremities: no edema musculoskeletal: no significant swelling or inflammation in any joint Neurologic/Psychiatric: Awake alert oriented times place and person moves all extremities sensation intact cranial nerves II-12 appear to be intact Skin: normal color, warm/dry, no rash Lucrecia Romano MD, [facility] hospitalist group Resuscitation Status VTE Prophylaxis Will order VTE Prophylaxis: Yes
[2018-01-25] MEDS ORDERED: ACETAMINOPHEN 325 MG TAB PO PRN (18:45)
[2018-01-25] MEDS ORDERED: POLYETHYLENE (MIRALAX) 17 GM PACK PO PRN (18:45)
[2018-01-25] MEDS ORDERED: ONDANSETRON INJ 2 MG/ML 2 ML VIAL IV PRN (18:45)
[2018-01-25] MEDS ORDERED: ALBUT/IPRATROP 3MG/0.5MG NEB 3 ML VIAL INH PRN (19:30)
[2018-01-25 19:48] VITALS: BP 100/63; PULSE 85; TEMP 36.9; Ht 149.9 cm; Wt 61.7 kg
[2018-01-25] MEDS: SODIUM CHLORIDE 0.9% 1000ML 1,000 ML IV SCH (20:03)
[2018-01-25] MEDS ORDERED: BuPROPion XL 300 MG TABCR PO SCH (21:00)
[2018-01-25] MEDS: ALBUT/IPRATROP 3MG/0.5MG NEB 3 ML VIAL INH SCH (21:39)
[2018-01-25 22:29] VITALS: BP 95/61; PULSE 77; TEMP 36.9; O2SAT 96
[2018-01-25] MEDS ORDERED: PNEUMOCOCCAL ADMINISTRATION CHARGE ONE (22:30)
[2018-01-25] MEDS ORDERED: PNEUMOCOCCAL POLYSACCHARIDES 25 MCG/0.5 ML VIAL/SYR IM. ONE (22:30)
[2018-01-26] VITALS (8 sets, daily range): BP systolic 101–115; BP diastolic 57–71; PULSE 78–104; TEMP 36.8–37.6; O2SAT 95–98
[2018-01-26] MEDS: SODIUM CHLORIDE 0.9% 1000ML 1,000 ML IV SCH (04:48)
[2018-01-26 06:11] LABS: BASO % 0.1 %; BASO ABS # 0.01 K/uL (0-0.2); EOS % 0.6 %; EOS ABS # 0.05 K/uL (0-0.5); HEMATOCRIT 34.2 % (37-47); HEMOGLOBIN 10.9 g/dL (12.0-16.0); IG# 0.01 K/uL (0.00-0.02); LYMPH % 31.4 %; LYMPH ABS # 2.55 K/uL (1.2-3.4); MEAN CELL VOLUME 84.4 fL (80-100); MEAN CORPUSCULAR HEMOGLOBIN 26.9 pg (25-34); MEAN CORPUSCULAR HGB CONC 31.9 g/dl (32-36); MEAN PLATELET VOLUME 9.3 fL (7.4-10.4); MONO % 7.1 %; MONO ABS # 0.58 K/uL (0.11-0.59); NEUT % 60.7 %; NEUT ABS # 4.93 K/uL (1.4-6.5); PLATELET COUNT 279 K/uL (130-400); RED CELL DISTRIBUTION WIDTH CV 13.3 % (11.5-14.5); RED CELL DISTRIBUTION WIDTH SD 40.8 fL (36.4-46.3); WHITE BLOOD COUNT 8.13 K/uL (4.8-10.8)
[2018-01-26 06:40] LABS: CALCIUM 8.3 mg/dl (8.5-10.1); CREATININE 0.82 mg/dl (0.60-1.20); POTASSIUM 3.8 mmol/L (3.5-5.1)
[2018-01-26] MEDS: ALBUT/IPRATROP 3MG/0.5MG NEB 3 ML VIAL INH SCH ×3 (06:53→15:32)
--- NOTE | 2018-01-26 08:49 | Family Medicine Progress Note ---
Progress Note Date of Service Jan 26, 2018. Subjective No acute events overnight. Pt reports that she is feeling well this morning, was able to sleep some overnight, eating clears when I entered the room. Reports a slight tremor in her extremities, but otherwise denies sx's of dyspnea, chest pain, abdominal pain, emesis, dysuria or dizziness. Reports that she'll drink a half a tumble of vodka and schnapps 3-4 times per week in the last month. Last drink was 4 days ago. NATAN negative on admission. Denies sx's of withdrawal in the past. Vitals are stable, sinus. Objective Physical Exam Notes: GENERAL: Awake, alert, tired-appearing, in no distress HENT: Normocephalic, atraumatic. Nose ring. EYES: Normal conjunctiva. Sclera non-icteric. NECK: Supple. FROM. RESPIRATORY: Clear to auscultation. CARDIAC: Regular rate, normal rhythm. Extremities warm and well perfused. Pulses equal. ABDOMEN: Soft, non-distended. No tenderness to palpation. No rebound or guarding. No masses. LOWER EXTREMITIES: Calves are equal size bilaterally and non-tender. No edema. No discoloration. NEURO: No motor deficits noted. PSYCH: feels down currently SKIN: No rash or jaundice noted. Assessment and Plan 22F here for trazadone ingestion 40+ tabs Drug intoxication/overingestion depression, bipolar, suicide attempt Alcohol abuse chronic bronchitis - followed by Dr. Chaudhari outpatient Lamictal level pending 1:1 Continue fluids Concern for alcohol withdrawal - last drink was 4 days ago, NATAN negative on admission. Do not see indication for AWSS at this time. Medically stable for psych marie admission, pending psych consult. Duonebs on, has not needed prn Reviewed outpatient records from Dr. Chaudhari's office, in Nov 2017 was diagnosed with H. influenzae pnuemonia, put on prednisone and levaquin. Follow up appointment in November 2017 these medications were discharged presumably bc Dr. Chaudhari felt her infection to be adequately treated and symptoms resolved. Pt does have residual bronchitis, for which she is on Proair, and per pt, she uses this occasionally. Discharge planning: other Resident Tracking Resident Involvement: Resident Care Provided Care Provided: Adult [facility]
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
--- NOTE | 2018-01-26 16:06 | Discharge Instructions ---
Discharge Instructions Date of Service Jan 26, 2018. Admission Reason for Admission: Depression, Overdose Discharge Discharge Diagnosis / Problem: Depression, Trazodone ingestion, Suicide attempt Discharge Goals Goal(s): Decrease discomfort, Improve function, Increase independence, Improve disease control, Improve nutritional status, Learn about illness, Diagnostic testing Activity Recommendations Activity Limitations: per Instructions/Follow-up section . Instructions / Follow-Up Instructions / Follow-Up You were admitted due to acute intoxication with trazodone due to suicide attempt. You will now be admitted to psychiatric inpatient unit for further management of your depression and anxiety. Your home medication of Proair inhaler to be used as needed for cough or wheezing is being added to your list of medications, as prescribed by your inspector and hand packager Dr. Chaudhari. Be well A [facility] Current Hospital Diet Patient's current hospital diet: Regular Diet Discharge Diet Recommended Diet: Regular Diet Pending Studies Studies pending at discharge: no Medical Emergencies . Who to Call and When: Medical Emergencies: If at any time you feel your situation is an emergency, please call 911 immediately. . Non-Emergent Contact Non-Emergency issues call your: Primary Care Provider . . "Provider Documentation" section prepared by Susi Dickerson. . Resident Tracking Resident Involvement: Resident Care Provided Care Provided: Adult Hospital Medicine
[2018-01-26] MEDS ORDERED: ALBU18002 INH (16:08)
--- NOTE | 2018-01-26 16:29 | Discharge Summary ---
Discharge Summary Date of Service Jan 26, 2018. Discharge Summary Admission Date: Jan 25, 2018 at 18:43 Discharge Date: Jan 26, 2018 Discharge Disposition: Acute care mental health Principal Diagnosis: Depression with Anxiety, Acute intoxication with SSRI, Suicidal attempt Problems/Secondary Diagnoses: Chronic asthmatic bronchitis Consultations: Psychiatry Medication Reconciliation New Medications: Albuterol Sulfate (Proair Respiclick) 108 Mcg/Act Aer 2 PUFFS INH Q4 PRN for Cough for 30 Days Continued Medications: Bupropion (Wellbutrin-Xl) 300 Mg Tabcr 300 MG PO QPM, TAB Etonogestrel/Ethinyl Estradiol (Nuvaring) 1 Ea Vagring 1 EA VAGRING MONTHLY, EA Lamotrigine (Lamictal) 100 Mg Tab 100 MG PO QPM, TAB Trazodone Hcl (Trazodone) 100 Mg Tab 100 MG PO QPM, TAB Discharge Exam Pt denies chest pain, difficulty breathing, cough, headache, blurred vision, abdominal pain or lightheadedness. Reports slight tremor in her right hand. Is tolerating full liquid diet and voiding. Reports depressed mood, numerous psychosocial stressors. ROS See HPI for pertinent positives and negatives. Physical Exam GENERAL: Awake, alert, tired-appearing, in no distress HENT: Normocephalic, atraumatic. Nose ring. EYES: Normal conjunctiva. Sclera non-icteric. NECK: Supple. FROM. RESPIRATORY: Clear to auscultation. CARDIAC: Regular rate, normal rhythm. Extremities warm and well perfused. Pulses equal. ABDOMEN: Soft, non-distended. No tenderness to palpation. No rebound or guarding. No masses. LOWER EXTREMITIES: Calves are equal size bilaterally and non-tender. No edema. No discoloration. NEURO: No motor deficits noted. CN II-XII grossly in tact. PSYCH: feels down currently SKIN: No rash or jaundice noted. Hospital Course Ms. Arora is a 22 year old female admitted for altered mental status due to acute intoxication with approximately 40 tablets of 100mg Trazodone in an attempt to hurt herself. Per pt, this is her second attempt. Pt has a long history of psychiatric depression and bipolar disorder for which she states she began treatment for in her adolescence. Pt presents via ED after ingestion for further management and monitoring. Per emergency physician note, case was discussed with poison control and decision was made to monitor for delayed symptomatology post ingestion. Since admission, pt has been hydrated with IV fluids and monitored. Pt has not had any further symptoms of emesis, altered mental status or abnormal vital signs. Slight tremor in her right hand is noted. Pt also has chronic bronchitis for which she is seen by pulmonology on outpatient basis. I reviewed her records, and it appears that pt presented to Dr. Chaudhari in Nov of this year and was treated with Levaquin and prolonged prednisone course for H. influenzae pneumonia. Pt returned for follow up on Nov having completed full course of antibiotics. No further antibiotic treatment was ordered at that time, and Dr. Chaudhari's recommendation was to continue treating her asthma with albuterol 2 puffs every 4 hours as needed for wheezing or cough. Decision made to admit patient once medically stable to behavioral health unit for further management of her attempt to harm herself secondary to severe depression, bipolar disorder and anxiety. Total Time Spent: Greater than 30 minutes This includes examination of the patient, discharge planning, medication reconciliation, and communication with other providers. Discharge Instructions Please refer to the electronic Patient Visit Report (Discharge Instructions) for additional information. Follow-Up 302: Pt will be admitted to psychiatric inpatient unit. Resident Tracking Resident Involvement: Resident Care Provided Care Provided: Adult [facility] Medicine Assessment/Plan Resident Physician Supervision Note: I was present with Dr. Dickerson during the history and exam. I discussed the case with the resident and agree with the findings and plan as documented in the note. Any exceptions or clarifications are listed here: When evaluated later in the morning, the patient has no complaints. She confirms both a history of depression/anxiety and bipolar, as well as self-harm behaviors. She also confirms a history of pulmonary disease managed by Dr. Chaudhari, most recently in November of this year after a treatment for H. influenzae as noted above. At present, she appears stable for discharge and transition to psychiatric care for her underlying diagnoses.
== END 2018-01-26 16:50 | DRG 918 ==
LOC: EDBD 14:13 → C.EDB 14:14 → C.MED 18:43 → ENRESERV 19:10
PROVIDERS: ADMIT Internal Medicine; ATTEND Family Medicine
DX: T43.222A Poisoning by selective serotonin reuptake inhibitors, intentional self-harm, initial encounter (principal); R45.851 Suicidal ideations; F41.8 Other specified anxiety disorders

== ENCOUNTER 2018-01-26 16:50 | Inpatient (IN) | payer BC ==
[~2018-01-26] VITALS: Ht 149.9 cm; Wt 61.3 kg
[~2018-01-26 16:50] MED LIST changes: +ALBU18002 INH
[2018-01-26] MEDS ORDERED: NURSING VERBAL MED ORDER ONE (17:45)
[2018-01-26 18:13] VITALS: BP 123/81; PULSE 104; TEMP 37.4; BMI 36.1
[2018-01-26] MEDS ORDERED: ALBUTEROL HFA 8 GM INHALER INH PRN (18:45)
[2018-01-26] MEDS ORDERED: ALUMINUM/MAGNESIUM SUSP 30 ML UDC PO PRN (19:30)
[2018-01-26] MEDS ORDERED: BISMUTH SUBSALICYLATE PER ML OMNICELL CHARGE PO PRN (19:30)
[2018-01-26] MEDS ORDERED: hydrOXYzine HCL 25 MG TAB PO PRN ×2 (19:30)
[2018-01-26] MEDS ORDERED: MAGNESIUM HYDROXIDE SUSP 30 ML UDC PO PRN (19:30)
[2018-01-26] MEDS ORDERED: SODIUM CHLORIDE 0.65% NA SOLN 45 ML (OCEAN) PRN (19:30)
[2018-01-26] MEDS ORDERED: ACETAMINOPHEN 325 MG TAB PO PRN (19:30)
[2018-01-27 07:06] VITALS: BP_SYST 105; BP_SYST 113; BP_DIAS 71; BP_DIAS 74; PULSE 79; PULSE 84; TEMP 37.1
[2018-01-27 07:07] VITALS: Ht 149.9 cm; Wt 61.3 kg
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
[2018-01-27] MEDS: BuPROPion XL 300 MG TABCR PO SCH (09:26)
[2018-01-27 15:11] VITALS: BP 116/79; PULSE 88
[2018-01-28 06:49] VITALS: BP_SYST 109; BP_SYST 112; BP_DIAS 73; BP_DIAS 74; PULSE 79; PULSE 89; TEMP 37.1
[2018-01-28] MEDS: BuPROPion XL 300 MG TABCR PO SCH (08:54)
--- NOTE | 2018-01-28 11:48 | Psychiatric Progress Notes ---
Progress Note Date of Service Jan 28, 2018. Interval History Jennifer is a 22 yo white female with a history of cyclothymic disorder and panic disorder who is admitted voluntarily after overdose on 4700 mg of trazodone in a suicide attempt. She was initially treated on the hospitalist service. Chief Complaint "Okay, good ". Subjective Patient was seen & assessed interval progress reviewed with Treatment Team. Her lamotrigine has been increased 250 mg daily, and bupropion XL continued at 300 mg. Trazodone has been discontinued. She has been attending groups, but has flat affect. Her mother came to visit from [place], which she was initially upset about, but then agreed to a meeting with her mother which was held yesterday. She was initially sarcastic and rude, but as the meeting progressed was able to have a more genuine discussion of her stressors. She talked about her health problems, how they have affected every aspect of her life, as well as recently losing a job, leaving school, and the breakup with her boyfriend, who is and lives with his . Her mother stated that she had been approved for 3 months of [place], and was willing to help the patient however she could. She encouraged her to consider returning to [place] until she is more stable, but the patient prefers to stay in [place]. She hopes to be able to return to college at some point. She was encouraged to consider the option of going to [place] for increased support. On my assessment today, the patient reports that her mood is "good since I have been here," and attributes her suicide attempt to "so many things going on in my life... My ex-boyfriend." She states that she has accepted that the relationship is over, and says "he is to me." She does not plan on having further contact with him. She says that she is "fine" with this, and that it has not been as upsetting as she would have expected. She states that her biggest stressor now is her health, stating she has some sort of lung disease that has not yet been diagnosed. She says she has seen "10 different doctors," and is frustrated that nobody knows what is going on with her. She has an appointment with a new senior analyst programmer in the [place] area coming up next week , and says that she cannot make a decision about where she will be living after discharge until she goes to that appointment and finds out what the recommendations are and if she will need to return for testing. She says her current options for housing R to stay in her apartment locally with roommates, or stay with her mother or father in the [place] area. She would prefer to stay here in [place], as she feels more stressed around her parents. She then says that she might stay with them, and does not feel able to make a decision now. When discussing after care, she states that she would prefer to have a psychiatrist and therapist in [place], as she plans to return to school here in the fall. She talks at length about her struggles, including that she is no longer able to exercise because of her pulmonary issues, has gained weight, and does not have transportation or money, so cannot explore other hobbies or ways to cope. She does identify puzzles, cooking with her roommates, and playing games as activities she enjoys that boost her mood. She denies suicidal thoughts, and feels safe here. Sleep Information Total Hours of Sleep: 6.50 Meal Information Percent of Breakfast Consumed: 75 Percent of Lunch Consumed: 100 Percent of Dinner Consumed: 50 Mental Status Exam During interview pt is: alert and oriented, cooperative Appearance: appropriately dressed, appropriately groomed (Dyed blond hair, nose ring) Eye contact is: good Motor behavior is: steady gait & station, no abnormal motor movements Speech: normal in rate, rhythm & volume Affect: other (Dramatic) Mood is: other ("Good") Thought process: circumstantial (At times he answered questions obliquely; often focused on reasons why various recommendations would not work for her.) Thought content: reality based without delusions Suicidal thought are: denied (But admits to overdosing on trazodone in a suicide attempt prior to admission) Homicidal thoughts are: denied Hallucinations: denies auditory, denies visual Cognition: memory grossly intact, language grossly intact Intelligence estimated to be: average Insight: impaired Judgement: impaired Summary of Past History [facility] records reviewed: Patient saw Dr. Bhat for an initial assessment on 08/16/2017. She had previously been seen by a therapist at [facility]. She reported mood swings since childhood, long-standing history of self injury (superficially cutting her thighs with a razor blade), and multiple past psychiatric hospitalizations for suicidal ideation, overdoses, and cutting. She reported hospitalization at [facility] in [place] 3 times: In 2010 for SI and cutting, and 2011 for Prozac overdose, and 2013 for suicidal thoughts. She described a pattern of mood changes with 2 or 3 days of "normal mood," that an acute change to depression which would last for 2 or 3 days, and then returned to baseline. She also reported occasional episodes of elated mood , with poor judgment and a tendency to talk excessively, lasting 2-3 days. She endorsed erratic sleep patterns, and ongoing cutting, approximately 45 times a month. She reported regular panic attacks with crying, vomiting, feelings of dread, hyperventilation, palpitations, paresthesias, and chest pains. 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 She also reported ongoing health issues, with difficulty breathing and use of a mask and inhalers. She had been working at [employer], but had not been working in about a month because of her various symptoms. She reported a history of fluoxetine, sertraline, and citalopram, which were helpful but caused weight gain. She admitted to poor adherence to medications. She reported history of alcohol abuse, drinking up to a half of 1/ 5 of rum most nights at times. She also reported abusing prescription opiates at times she was diagnosed with cyclothymic disorder and panic disorder, prescribed trazodone as needed for sleep, bupropion SR 100 mg twice daily, and lamotrigine 25 mg daily. She has followed up regularly since that time, and was most recently seen on 01/23/2018, at which point she reported mood was stable , but she was having issues in her relationship. Her boyfriend had asked her to consider moving in with him, and then a week later told her that he was thinking about staying with his . She endorsed feeling betrayed and confused, but reported good sleep and appetite. She was instructed to increase her lamotrigine from 100 mg daily 250 mg, continue bupropion XL 300 mg daily, and trazodone 100-200 mg nightly as needed insomnia. Impression 22-year-old single female with cyclothymic disorder and panic disorder who is admitted voluntarily after an intentional overdose. She displays personality disorder symptoms, attributes much of her difficulties to her health issues and relationships, has a history of multiple overdoses and cutting, reactive mood, interpersonal difficulties, and limited insight. She has been resistant to making a decision about where she will live at discharge, and continues to require inpatient treatment at this time due to the risk for suicide if discharged prematurely, given the seriousness of her suicide attempt prior to admission and inability to address her stressors thus far in treatment. Plan (1) Overdose The patient when cleared for admission will be admitted to [facility] ([facility]) on q 15 min checks (behavioral with suicide precautions) for safety. The patient will participate in group, recreational and milieu therapies and will be offered additional individual and family sessions as clinically appropriate. 01/27 - Continue suicide precautions 01/28 -trazodone has been discontinued due to overdose. Family meeting held with mother yesterday, who encouraged patient to come and stay with her and [place], but the patient is unsure thinking she may want to stay locally. She will need to work on a safety plan, and would recommend that someone else hold her medications and dispense to her daily until she has stabilized, if this is possible. (2) Cyclothymic disorder The patient is to be admitted to [facility] ([facility]) on q 15 min checks (behavioral with suicide precautions) for safety when cleared by the General Medical Physicians. The patient will participate in group , recreational and milieu therapies and will be offered additional individual and family sessions as clinically appropriate. -The patient presents with chronic mood lability, SIB since childhood as well as chronic suicidality that has led to two significant SA's via overdose on Prescription Psychiatric medications. Recommend review of [facility] records Review of records from prior hospital admissions - [facility] in [place] Recommend Mood Stabilizer -- Continue Lamictal titration to 150mg or consideration for Depakote as she does experience mood lability of anger/ irritability. Initial pre hospital levels of Lamictal may have been less than effective due to concomitant use of her NuvaRing which is known to lower the effectiveness. Recommend decreasing Wellbutrin as it may be causing her agitation/irritability. 01/27 - Continue current treatment plan and medications: Lamictal 150 mg daily and Wellbutrin XL 300 mg in am daily. 01/28 -continue current meds. Reviewed [facility] records, and care coordinated with Dr. Bhat. Her next appointment is scheduled for 02/21/2018, and she will likely need an earlier appointment. -Refer for outpatient therapy -patient needs to determine where she will be living in order to arrange aftercare. -Have requested [facility] records; still awaiting them. (3) Panic disorder Recommend Vistaril 25 mg po q 4 hrs prn agitation and also Vistaril 50 mg at HS for sleep Avoid Benzodiazepines 01/27 - continue current meds and treatment plan (4) Chronic asthmatic bronchitis Continue care with Pulmonology as an OP. Discussion with Dr. Grady who follows the patient on the General Medical Floor reviewed the ID records of previous and reports they did not detail an acute ID process. Visit Code E&M Code: 71847 Risk Factors Assessment : Yes /single/: Yes Higher / Fall in social status: No Access to guns: No Health problems: Yes Mental Health Diagnoses: Yes Substance use disorders: No Previous attempt: Yes Family history of suicide: No Previous psychiatric stay: Yes Hopelessness: No Smoker: No Protective Factors Assessment : No Responsible for young children: No Employed: Yes Stable relationships: No Supportive family: Yes Data Vital Signs Last 24 Hrs: Date Time Temp Pulse Resp B/P (MAP) Pulse Ox O2 Delivery O2 Flow Rate FiO2 01/28/18 06:49 37.1 79 16 112/73 89 109/74 01/27/18 15:11 88 18 116/79 Meds Administered Last 24 Hrs: Meds Administered (Past 24Hrs) Medications (Trade) Dose Ordered Sig/Erik Route Start Time Stop Time Status Last Admin Dose Admin Bupropion HCl (Wellbutrin-Xl Tab) 300 mg QAM PO 01/27/18 09:00 02/26/18 08:59 01/28/18 08:54 300 MG Lamotrigine (Lamictal Tab) 150 mg QPM PO 01/27/18 21:00 02/26/18 20:59 01/27/18 21:18 150 MG Lamotrigine (Lamictal Tab) 100 mg ONE ONCE PO 01/26/18 21:00 01/26/18 21:01 DC 01/26/18 21:14 100 MG
[2018-01-28] MEDS ORDERED: NURSING VERBAL MED ORDER ONE (21:00)
[2018-01-28] MEDS ORDERED: HYDROCODONE/HOMATROPINE SYRUP 5MG/1.5MG 5ML UDP PO PRN (21:15)
[2018-01-29 06:42] VITALS: BP_SYST 119; BP_SYST 125; BP_DIAS 76; BP_DIAS 83; PULSE 80; PULSE 91; TEMP 37.1
[2018-01-29] MEDS: BuPROPion XL 300 MG TABCR PO SCH (08:50)
--- NOTE | 2018-01-29 11:32 | Psychiatric Progress Notes ---
Progress Note Date of Service January 29, 2018. Interval History Jennifer is a 22 yo white female with a history of cyclothymic disorder and panic disorder who is admitted voluntarily after overdose on 4700 mg of trazodone in a suicide attempt. She was initially treated on the hospitalist service. Chief Complaint "I'm not feeling well today.". Subjective Patient was seen & assessed interval progress reviewed with Treatment Team. The patient is in bed today, saying that she doesn't feel well. She reports a coughing spell last night that caused her to vomit. She reviews that her H. Influenza infection has been treatment resistant and she has an appt in [place] for a second opinion scheduled. Her mother has taken time off of work to come her to stay with her for a while and if the physician in [place] wants to run extensive testing then she will move back to [place] with her mother for that time period. She says that she feel supported by her mother's presence. She wants to be able to be discharged soon, and says that with the weather turning good, she will be able to return to walking 6 miles per day which she finds to be immensely helpful to her. She denies SI today, but says that her mood is impacted by not feeling well today. She has been attending all groups and doesn't know what more she can do to help herself. Review of Systems Constitutional: + fatigue ENT: No hearing loss, No unusual epistaxis, No nasal symptoms, No sore throat, No tinnitus, No dental problems, No trouble swallowing, No problem reported Respiratory: + cough Cardiovascular: No chest pain, No orthopnea, No PND, No edema, No claudication , No palpitations, No problem reported Abdomen: No pain, No nausea, No vomiting, No diarrhea, No constipation, No GI bleeding, No problem reported Musculoskeletal: No joint pain, No muscle pain, No swelling, No calf pain, No problem reported Neurologic: No memory loss, No paralysis, No weakness, No numbness/tingling, No vertigo, No balance problems, No problem reported Psychiatric: + depression symptoms Integumentary: No rash, No itch, No new/changing skin lesions, No color change , No bleeding, No problem reported Sleep Information Total Hours of Sleep: 8.00 Meal Information Percent of Breakfast Consumed: 10 Percent of Lunch Consumed: 75 Percent of Dinner Consumed: 25 Mental Status Exam During interview pt is: alert and oriented, cooperative Appearance: appropriately dressed (still in pajamas and robe), appropriately groomed (Dyed blond hair, nose ring) Eye contact is: good Motor behavior is: steady gait & station, no abnormal motor movements Speech: normal in rate, rhythm & volume Affect: other (tired) Mood is: depressed Thought process: goal directed Thought content: reality based without delusions Suicidal thought are: denied Homicidal thoughts are: denied Hallucinations: denies auditory, denies visual Cognition: memory grossly intact, language grossly intact Intelligence estimated to be: average Insight: limited Judgement: limited Summary of Past History [facility] records reviewed: Patient saw Dr. Bhat for an initial assessment on 08/16/2017. She had previously been seen by a therapist at [facility]. She reported mood swings since childhood, long-standing history of self injury (superficially cutting her thighs with a razor blade), and multiple past psychiatric hospitalizations for suicidal ideation, overdoses, and cutting. She reported hospitalization at [facility] in [place] 3 times: In 2010 for SI and cutting, and 2011 for Prozac overdose, and 2012 for suicidal thoughts. She described a pattern of mood changes with 2 or 3 days of "normal mood," that an acute change to depression which would last for 2 or 3 days, and then returned to baseline. She also reported occasional episodes of elated mood , with poor judgment and a tendency to talk excessively, lasting 2-3 days. She endorsed erratic sleep patterns, and ongoing cutting, approximately 45 times a month. She reported regular panic attacks with crying, vomiting, feelings of dread, hyperventilation, palpitations, paresthesias, and chest pains. 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 She also reported ongoing health issues, with difficulty breathing and use of a mask and inhalers. She had been working at [employer], but had not been working in about a month because of her various symptoms. She reported a history of fluoxetine, sertraline, and citalopram, which were helpful but caused weight gain. She admitted to poor adherence to medications. She reported history of alcohol abuse, drinking up to a half of 1/ 5 of rum most nights at times. She also reported abusing prescription opiates at times she was diagnosed with cyclothymic disorder and panic disorder, prescribed trazodone as needed for sleep, bupropion SR 100 mg twice daily, and lamotrigine 25 mg daily. She has followed up regularly since that time, and was most recently seen on 01/23/2018, at which point she reported mood was stable , but she was having issues in her relationship. Her boyfriend had asked her to consider moving in with him, and then a week later told her that he was thinking about staying with his . She endorsed feeling betrayed and confused, but reported good sleep and appetite. She was instructed to increase her lamotrigine from 100 mg daily 250 mg, continue bupropion XL 300 mg daily, and trazodone 100-200 mg nightly as needed insomnia. Impression Not feeling physically well today, impacting her mood. Is asking how soon she can go home, wanting to be with her mother and start walking again. Her plan is to stay in [place] with hopes to return to school during the second summer sem, unless her pulmonology consult results in the need to be in [place] for an extended period, then she will move back with mother. Continue current meds. Plan (1) Overdose The patient when cleared for admission will be admitted to [facility] (health system mental health unit) on q 15 min checks (behavioral with suicide precautions) for safety. The patient will participate in group, recreational and milieu therapies and will be offered additional individual and family sessions as clinically appropriate. 01/27 - Continue suicide precautions 01/28 -trazodone has been discontinued due to overdose. Family meeting held with mother yesterday, who encouraged patient to come and stay with her and [place], but the patient is unsure thinking she may want to stay locally. She will need to work on a safety plan, and would recommend that someone else hold her medications and dispense to her daily until she has stabilized, if this is possible. (2) Cyclothymic disorder The patient is to be admitted to [facility] (health system mental health unit) on q 15 min checks (behavioral with suicide precautions) for safety when cleared by the General Medical Physicians. The patient will participate in group , recreational and milieu therapies and will be offered additional individual and family sessions as clinically appropriate. -The patient presents with chronic mood lability, SIB since childhood as well as chronic suicidality that has led to two significant SA's via overdose on Prescription Psychiatric medications. Recommend review of [facility] records Review of records from prior hospital admissions - [facility] in [place] Recommend Mood Stabilizer -- Continue Lamictal titration to 150mg or consideration for Depakote as she does experience mood lability of anger/ irritability. Initial pre hospital levels of Lamictal may have been less than effective due to concomitant use of her NuvaRing which is known to lower the effectiveness. Recommend decreasing Wellbutrin as it may be causing her agitation/irritability. 01/27 - Continue current treatment plan and medications: Lamictal 150 mg daily and Wellbutrin XL 300 mg in am daily. 01/28 -continue current meds. Reviewed [facility] records, and care coordinated with Dr. Bhat. Her next appointment is scheduled for 02/21/2018, and she will likely need an earlier appointment. -Refer for outpatient therapy -patient needs to determine where she will be living in order to arrange aftercare. -Have requested [facility] records; still awaiting them. 01/29 - Continue current meds - Focus on safety planning (3) Panic disorder Recommend Vistaril 25 mg po q 4 hrs prn agitation and also Vistaril 50 mg at HS for sleep Avoid Benzodiazepines 01/27 - continue current meds and treatment plan (4) Chronic asthmatic bronchitis Continue care with Pulmonology as an OP. Discussion with Dr. Grady who follows the patient on the General Medical Floor reviewed the ID records of previous and reports they did not detail an acute ID process. Discharge / Aftercare Planning Primary Care Physician: Name: Dr. Chaudhari Appointment Notes: follow up as needed - [address], , [place] Psychiatrist: Name: [facility] - Dr. Bhat Date of Appointment: February 06, 2018 Time of Appointment: 9:15 Appointment Notes: & 12/18 @ [id number] [facility] Therapist: Name: Kath De León [facility] Date of Appointment: February 07, 2018 Time of Appointment: 3pm Appointment Notes: [address] [facility] Visit Code E&M Code: 64366 Risk Factors Assessment : Yes /single/: Yes Higher / Fall in social status: No Access to guns: No Health problems: Yes Mental Health Diagnoses: Yes Substance use disorders: No Previous attempt: Yes Family history of suicide: No Previous psychiatric stay: Yes Hopelessness: No Smoker: No Protective Factors Assessment : No Responsible for young children: No Employed: Yes Stable relationships: No Supportive family: Yes Data Vital Signs Last 24 Hrs: Date Time Temp Pulse Resp B/P (MAP) Pulse Ox O2 Delivery O2 Flow Rate FiO2 01/29/18 06:42 37.1 91 16 119/76 80 125/83 Meds Administered Last 24 Hrs: Meds Administered (Past 24Hrs) Medications (Trade) Dose Ordered Sig/Erik Route Start Time Stop Time Status Last Admin Dose Admin Lamotrigine (Lamictal Tab) 150 mg QPM PO 01/27/18 21:00 02/26/18 20:59 01/28/18 21:36 150 MG Hydrocodone Bit/ Homatropine Methylb (Hycodan Syrup) 5 ml Q6H PRN PO 01/28/18 21:15 02/11/18 21:14 01/28/18 21:35 5 ML Lab Results Last 24 Hrs: Test 01/26/18 05:32 Thyroid Stimulating Hormone (TSH) 1.370 uIu/ml (0.300-4.500)
[2018-01-30 06:46] VITALS: BP_SYST 117; BP_SYST 121; BP_DIAS 75; BP_DIAS 79; PULSE 69; PULSE 83; TEMP 36.6
[2018-01-30] MEDS: BuPROPion XL 300 MG TABCR PO SCH (08:40)
[2018-01-30] MEDS ORDERED: LAMO100T16 PO (09:19)
--- NOTE | 2018-01-30 09:30 | Discharge Instructions ---
Discharge Information Report Includes Report will include the: Discharge Instructions & Summary Admission Admission Date / Time: Jan 26, 2018 at 16:50 Reason for Admission: Cyclothymatic Disorder Discharge Discharge Diagnosis / Problem: Depression Condition at Discharge: Fair Discharge Goals Goal(s): Decrease discomfort, Improve disease control Activity Recommendations Activity Limitations: resume your previous activity . Instructions / Follow-Up Instructions / Follow-Up . SPECIAL CARE INSTRUCTIONS: 1. Follow through with your scheduled aftercare appointments. If unable to keep an appointment, please call to reschedule. 2. Take your medication only as prescribed. Medication should not be changed or stopped without the approval of your doctor. In the event of worsening symptoms or concerns about side effects, contact your doctor immediately. 3. Utilize new healthy coping skills, anger management skills, and stress management skills learned during your hospitalization. Journal feelings and process them with a support person. Identify stressors or situations that may result in relapse, deterioration or inappropriate behaviors and develop a plan to deal with those issues. 4. If your coping skills are ineffective and you are in crisis, contact your outpatient providers for direction. If unable to reach your providers, please call the CAN HELP LINE AT or go to the closest Emergency Room. 5. Avoid alcohol and un-prescribed drugs. 6. You have been provided with the Mental Health Advance Directives Pamphlet for your review. AFTERCARE APPOINTMENTS: * Please call your insurance company prior to your scheduled appointment to confirm your aftercare providers are covered. Take your insurance information to your appointments. . Discharge / Aftercare Planning Primary Care Physician: Name: Dr. Chaudhari Appointment Notes: follow up as needed - [address] [facility], [address], [place] Psychiatrist: Name: ColoWraprd Ayon - Dr. Bhat Date of Appointment: February 06, 2018 Time of Appointment: 9:15 Appointment Notes: 12/18 @ [id number] [facility] Therapist: Name Of Therapist: Kath De [email or web address] [email or web address] Date of Appointment: February 07, 2018 Time of Appointment: 3pm Appointment Comments: [address] [facility] Home Health Services: Home Health Services: none . Follow-Up Care Plan for Follow-Up Care: The patient will see both her psychiatrist and therapist next week Current Hospital Diet Patient's current hospital diet: Regular Diet Discharge Diet Recommended Diet: Regular Diet Procedures Procedures Performed: No Pending Studies Pending Studies at Discharge: No Medical Emergencies . Who to Call and When: Medical Emergencies: For questions or emergencies related to your hospital stay, please contact the Inpatient Behavioral Health Unit at [phone]. A surg tech is on-call 23/04 for the Behavioral Health Unit for emergencies At any time you feel your situation is an emergency, you may also call 911 immediately. . Non-Emergent Contact Non-Emergency issues call your: Psychiatrist, Therapist Past History Medical & Surgical History: (1) Chronic asthmatic bronchitis Advance Directives Existing Advance Directive: No Do You Have an Existing Mental: No Existing Living Will: No Existing Power of Sterile Tech: No Advance Directives Info Given: To Pt/S.O. Advance Directives Reason: Declines as Mental Health Visit. Discharge Summary Admission HPI Per the Admitting provider: 22 yo female admitted from the medical floor following an intentional overdose of trazodone in a suicide attempt. Hospital Course (1) Overdose The patient when cleared for admission will be admitted to [facility] ([facility] inpatient mental health unit) on q 15 min checks (behavioral with suicide precautions) for safety. The patient will participate in group, recreational and milieu therapies and will be offered additional individual and family sessions as clinically appropriate. 01/27 - Continue suicide precautions 01/28 -trazodone has been discontinued due to overdose. Family meeting held with mother yesterday, who encouraged patient to come and stay with her and [place], but the patient is unsure thinking she may want to stay locally. She will need to work on a safety plan, and would recommend that someone else hold her medications and dispense to her daily until she has stabilized, if this is possible. (2) Cyclothymic disorder The patient is to be admitted to [facility] ([facility] inpatient mental health unit) on q 15 min checks (behavioral with suicide precautions) for safety when cleared by the General Medical Physicians. The patient will participate in group , recreational and milieu therapies and will be offered additional individual and family sessions as clinically appropriate. -The patient presents with chronic mood lability, SIB since childhood as well as chronic suicidality that has led to two significant SA's via overdose on Prescription Psychiatric medications. Recommend review of [facility] records Review of records from prior hospital admissions - [facility] in [place] Recommend Mood Stabilizer -- Continue Lamictal titration to 150mg or consideration for Depakote as she does experience mood lability of anger/ irritability. Initial pre hospital levels of Lamictal may have been less than effective due to concomitant use of her NuvaRing which is known to lower the effectiveness. Recommend decreasing Wellbutrin as it may be causing her agitation/irritability. 01/27 - Continue current treatment plan and medications: Lamictal 150 mg daily and Wellbutrin XL 300 mg in am daily. 01/28 -continue current meds. Reviewed [facility] records, and care coordinated with Dr. Bhat. Her next appointment is scheduled for 02/21/2018, and she will likely need an earlier appointment. -Refer for outpatient therapy -patient needs to determine where she will be living in order to arrange aftercare. -Have requested [facility] records; still awaiting them. 01/29 - Continue current meds - Focus on safety planning (3) Panic disorder Recommend Vistaril 25 mg po q 4 hrs prn agitation and also Vistaril 50 mg at HS for sleep Avoid Benzodiazepines 01/27 - continue current meds and treatment plan (4) Chronic asthmatic bronchitis Continue care with Pulmonology as an OP. Discussion with Dr. Grady who follows the patient on the General Medical Floor reviewed the ID records of previous and reports they did not detail an acute ID process. Risk Factors Assessment : Yes /single/: Yes Higher / Fall in social status: No Access to guns: No Health problems: Yes Mental Health Diagnoses: Yes Substance use disorders: No Previous attempt: Yes Family history of suicide: No Previous psychiatric stay: Yes Hopelessness: No Smoker: No Protective Factors Assessment : No Responsible for young children: No Employed: Yes Stable relationships: No Supportive family: Yes Day of Discharge Assessment COURSE OF HOSPITALIZATION: The patient has been on her unit for 4 days. She was admitted voluntarily on transfer from the medical floor following an intentional trazodone overdose. She has been under significant stress after having had an argument with her boyfriend who will no longer plan to live with her and return to his , and because she has had chronic lung problems with Haemophilus influenza. She has had withdrawal from [facility] due to her medical conditions and is scheduled to have a second opinion in [place] with a cognos administrator. During her stay, she was continued on Wellbutrin XL 300 mg daily however her Lamictal was increased from 100-150 mg daily. She tolerated this without side effect. During her stay she attended group and individual counseling although did have 1 or 2 days when she felt physically unwell, and spent most of her free time in her room. Her mother was involved in her treatment, attended a family meeting and came to [place] to stay during her hospitalization. The plan at discharge is for her mother to be here with her for a period of time until she has her second opinion in [place] at which point the patient may move back to [place] with mother as she undergoes further testing. The patient denied any further thoughts of suicide during her stay. TRANSITION OF CARE: I have personally reviewed the patient's appointments and medications. I have counseled her to attend all appointments as scheduled, and not to change her medications in any way without consulting her outpatient providers. DAY OF DISCHARGE ASSESSMENT: Today the patient is requesting discharge. She continues to deny any suicidal ideation. She reports that she has worked on a safety plan which ultimately includes return to the nearest emergency room in the event of suicidality or serious worsening of her condition. Again her mother will be here to pick her up and will remain with her. She has prompt follow-up with her outpatient providers, both psychiatrist and therapist next week. Today the patient is casually and appropriately dressed and groomed. Gait and station are within normal limits. Eye contact is good. Affect is weakly smiling. Speech is of normal rate volume and tone. Thoughts are organized, goal-directed, and without evidence of thought disorder. Recent and remote memory are intact per conversation. Intelligence is estimated to be average. Insight and judgment are improved over admission. Laboratory Test 01/26/18 05:32 Thyroid Stimulating Hormone (TSH) 1.370 Total Time Total Time Spent (min): Greater than 30 minutes Total Time Included: examination of the patient, discharge planning, medication reconciliation, communication with other providers Tobacco Cessation at Discharge Smoking Status: Never Smoker FDA approved Prescription: non-smoker
[2018-01-30] MEDS ORDERED: DESTROY THIS MEDICATION ONE (10:00)
== END 2018-01-30 11:20 | disposition home or self-care (01) | DRG 883 ==
LOC: C.MHU 16:50
PROVIDERS: ADMIT Psychiatry & Neurology Child & Adolescent Psychiatry; ATTEND Psychiatry & Neurology Child & Adolescent Psychiatry
DX: F34.0 Cyclothymic disorder (principal); J14 Pneumonia due to Hemophilus influenzae; J44.1 Chronic obstructive pulmonary disease with (acute) exacerbation; T14.91XD Suicide attempt, subsequent encounter; T43.212D Poisoning by selective serotonin and norepinephrine reuptake inhibitors, intentional self-harm, subsequent encounter; F41.0 Panic disorder [episodic paroxysmal anxiety]; F41.1 Generalized anxiety disorder; Z91.5 Personal history of self-harm; Z91.410 Personal history of adult physical and sexual abuse; Z81.8 Family history of other mental and behavioral disorders

== ENCOUNTER 2018-02-16 15:27 | Emergency (ER) | payer BC ==
[~2018-02-16] VITALS: Ht 149.9 cm; Wt 58.6 kg
[~2018-02-16 15:27] MED LIST changes: -TRAZ100T29 PO
[2018-02-16 15:32] VITALS: TEMP 37; Ht 149.9 cm; Wt 58.6 kg
--- NOTE | 2018-02-16 16:07 | EMERGENCY ROOM VISIT NOTE ---
History First contact with patient: 15:37 Chief Complaint: VAGINAL DISCHARGE Stated Complaint: CRAMPS,VAGINAL ISSUES History of Present Illness The patient is a 22 year old female who presents to the Emergency Room with complaints of vaginal issues. The patient states she is on the last day of her menstrual period. She reports that she slept with a pad last night. She woke up this morning and attempted to insert a tampon but states she was unable to. She states that her vagina looks different and she does not think there is an opening there. She does report some abdominal cramping which is slightly worse than with her normal periods. She rates her overall discomfort a 2/10. Review of Systems A complete 10 point review of systems was reviewed with the patient with pertinent positives and negatives as per history of present illness. All else were negative. Past Medical/Surgical History Medical Problems: (1) Allergic rhinitis (2) Chronic asthmatic bronchitis (3) Cyclothymic disorder (4) Depression (5) GARFIELD (generalized anxiety disorder) (6) Overdose (7) Panic disorder Family History FH: CHF (congestive heart failure) MOTHER FH: HTN (hypertension) FATHER FH: breast cancer FH: depression FATHER FH: ovarian cancer Kidney stones FATHER Social History Smoking Status: Never Smoker Drug Use: none Marital Status: single Occupation Status: unemployed, [employer] student Current/Historical Medications Scheduled Bupropion (Wellbutrin-Xl), 300 MG PO QPM Etonogestrel/Ethinyl Estradiol (Nuvaring), 1 EA VAGRING MONTHLY Lamotrigine (Lamictal), 150 MG PO QPM Scheduled PRN Albuterol Sulfate (Proair Respiclick), 2 PUFFS INH Q4 PRN for Cough Physical Exam Vital Signs Date Time Temp Pulse Resp B/P (MAP) Pulse Ox O2 Delivery O2 Flow Rate FiO2 02/16/18 16:44 90 20 113/88 99 Room Air 02/16/18 15:32 37.0 98 17 129/73 97 Room Air Physical Exam VITALS: Vitals are noted on the nurse's note and reviewed by myself. Vital signs stable. GENERAL: This is a 22-year-old female, in no acute distress, nondiaphoretic, well-developed well-nourished. SKIN: The skin was without rashes. ABDOMEN: No significant tenderness to palpation. PELVIC: External genitalia unremarkable. Speculum exam reveals a patent vaginal introitus. There is a small amount of white discharge in the vaginal vault. NEURO: Patient was alert and oriented to person place and time. Medical Decision & Procedures Laboratory Results Test 02/16/18 16:19 Date/Time Source Procedure Growth Status 02/16/18 16:19 Vaginal Swab Trichomonas Preparation - Final Complete Medical Decision The patient was evaluated as above. She is concerned that her vagina has some somehow sealed itself overnight. Speculum exam was performed and the patient was reassured that her exam was normal. She did have some whitish discharge and cultures were obtained. Patient was [facility] [facility] for further eval. She verbalized understanding of my assessment and treatment plan and was discharged home in good condition. Medication Reconcilliation Current Medication List: was personally reviewed by me Blood Pressure Screening Patient's blood pressure: Normal blood pressure Impression Primary Impression: Normal vaginal exam Departure Information Dispostion Home / Self-Care Condition GOOD Referrals No Doctor, Assigned (PCP) Patient Instructions My [facility] Additional Instructions Follow-up with [facility] or [facility] [facility] [facility] as needed for any further complaints. Return to the emergency department with any worsening or new/concerning symptoms.
[2018-02-16 16:44] VITALS: BP 113/88; PULSE 90; O2SAT 99
== END 2018-02-16 16:48 | disposition home or self-care (01) ==
LOC: C.EDB 15:28
DX: Z01.89 Encounter for other specified special examinations (principal); F41.9 Anxiety disorder, unspecified; F32.9 Major depressive disorder, single episode, unspecified